=== PATIENT | male | born 1940 | race Caucasian/White ===

== ENCOUNTER 2017-10-21 08:38 | Outpatient (CLI) | payer MEDICARE, OTHER ==
[2017-10-21 09:48] LABS: HGB - HEMOGLOBIN 10.4 g/dL (14.0-18.0); MEAN CORPUSCULAR HEMOGLOBIN 29.5 pg (27.0-31.0); MEAN CORPUSCULAR HGB CONC 33.5 g/dL (32.0-36.0); MEAN CORPUSCULAR VOLUME 88.1 fL (80.0-94.0); MEAN PLATELET VOLUME 10.4 fL (7.4-11.4); RED BLOOD COUNT 3.53 10^6/uL (4.70-6.10); RED CELL DISTRIBUTION WIDTH 14.3 % (12.0-15.0); WHITE BLOOD COUNT 9.2 x10^3/uL (4.8-10.8)
[2017-10-21 09:57] LABS: CREATININE,URINE 75.3 mg/dL; PROTEIN/CREATININE RATIO,URINE 0.7 (<=0.2)
== END 2017-10-21 08:39 | disposition home or self-care (01) ==
LOC: RT 08:38
PROVIDERS: ATTEND Internal Medicine Cardiovascular Disease
DX: D70.9 Neutropenia, unspecified (principal); R80.9 Proteinuria, unspecified; I48.91 Unspecified atrial fibrillation
CPT/HCPCS: 36415; 82570; 84156; 93005

== ENCOUNTER 2017-11-19 08:02 | Outpatient (CLI) | payer MEDICARE, OTHER ==
[2017-11-19 10:08] LABS: CALCIUM 9.6 mg/dL (8.5-10.3); CREATININE 2.4 mg/dL (0.6-1.2); PHOSPHORUS 5.3 mg/dL (2.5-4.6)
[2017-11-19 10:26] LABS: FERRITIN 447.3 ng/mL (23.9-336.2)
[2017-11-19 11:11] LABS: FOLATE > 49.60 ng/mL (5.90 - >24.8)
--- NOTE | 2017-11-19 11:45 | Ultrasound Report ---
RENAL ULTRASOUND: 11/19/2017 CLINICAL INDICATION: Stage IV kidney disease. TECHNIQUE: Real-time scanning was performed with field service representative static images obtained. FINDINGS: The right kidney measures 11.1 x 5.7 x 5.0 cm. Multiple cysts are present, measuring up to 2 cm. No hydronephrosis or solid renal mass is identified. The left kidney measures 10.3 x 5.6 x 4.9 cm. Multiple cysts are present, measuring up to 1.6 cm. A small calcification is present in the lower pole. Prevoid, the urinary bladder measures 6.8 x 5.6 x 2.8 cm, yielding a prevoid volume of 56 mL. Bilateral ureteral jets are visualized. Postvoid residual is 8 mL. IMPRESSION: BILATERAL CYSTS AND A NONOBSTRUCTING LEFT RENAL CALCULUS. NO HYDRONEPHROSIS. AN 8 ML POSTVOID RESIDUAL. TD: 11/19/2017 11:44
== END 2017-11-19 08:03 | disposition home or self-care (01) ==
LOC: DI 08:02
PROVIDERS: ATTEND Internal Medicine Nephrology
DX: N18.4 Chronic kidney disease, stage 4 (severe) (principal); D50.0 Iron deficiency anemia secondary to blood loss (chronic); N05.9 Unspecified nephritic syndrome with unspecified morphologic changes; D64.9 Anemia, unspecified; E83.30 Disorder of phosphorus metabolism, unspecified; N25.81 Secondary hyperparathyroidism of renal origin; N20.0 Calculus of kidney; Q61.02 Congenital multiple renal cysts
CPT/HCPCS: 36415; 76770; 80048; 82607; 82728; 82746; 83540; 83970; 84100; 84466

== ENCOUNTER 2018-02-16 16:49 | Inpatient (IN) | payer MEDICARE, OTHER ==
--- NOTE | 2018-02-16 18:36 | XRAY Report ---
Procedure Date: 02/16/2018 Accession Number: [id number] / [id number] Procedure: XR - Chest 2 View X-Ray CPT Code: 87697 FULL RESULT: EXAM: CHEST RADIOGRAPHY EXAM DATE: 02/16/2018 06:08 PM. CLINICAL HISTORY: Chest pain. COMPARISON: None. TECHNIQUE: 2 views. FINDINGS: Lungs/Pleura: Mildly hyperexpanded. Diffuse prominence of lung markings. Small pleural effusions, left more than right, with underlying atelectasis versus infiltrate. No consolidation or pneumothorax. Mediastinum: Normal heart size. Mild diffuse vascular fullness. Other: Osteopenia. IMPRESSION: 1. Left basilar atelectasis versus infiltrate. 2. Findings of congestive failure with small effusions. RADIA
[2018-02-16 18:50] LABS: BASOPHILS # (AUTO) 0.1 10^3/uL (0.0-0.1); BASOPHILS % (AUTO) 0.8 %; EOSINOPHILS # (AUTO) 0.2 10^3/uL (0.0-0.7); EOSINOPHILS % (AUTO) 1.8 %; HGB - HEMOGLOBIN 9.8 g/dL (14.0-18.0); LYMPHOCYTES # (AUTO) 1.5 10^3/uL (1.5-3.5); LYMPHOCYTES % (AUTO) 16.7 %; MEAN CORPUSCULAR HEMOGLOBIN 29.4 pg (27.0-31.0); MEAN PLATELET VOLUME 10.8 fL (7.4-11.4); MONOCYTES # (AUTO) 0.7 10^3/uL (0.0-1.0); NEUTROPHILS # (AUTO) 6.4 10^3/uL (1.5-6.6); NEUTROPHILS % (AUTO) 72.7 %; PLT - PLATELET COUNT 187 10^3/uL (130-450); RED BLOOD COUNT 3.32 10^6/uL (4.70-6.10); RED CELL DISTRIBUTION WIDTH 14.1 % (12.0-15.0); WHITE BLOOD COUNT 8.8 x10^3/uL (4.8-10.8)
[2018-02-16 19:03] LABS: ALBUMIN 3.3 g/dL (3.2-5.5); ALBUMIN/GLOBULIN RATIO 0.9 (1.0-2.2); CALCIUM 8.5 mg/dL (8.5-10.3); CREATININE 2.3 mg/dL (0.6-1.2); TOTAL PROTEIN 6.9 g/dL (6.7-8.2)
--- NOTE | 2018-02-16 19:41 | ED Physician Documentation ---
PD HPI CHEST PAIN - Stated complaint Stated Complaint: SOA/CHEST TIGHTNESS - Chief complaint Chief Complaint: Cardiac - History obtained from History obtained from: Patient - History of Present Illness Timing - onset: How many days ago (3-4) Timing - duration: Days (3-4) Timing - details: Gradual onset, Still present (progressive) Quality: Pressure, Tightness Location: Substernal, Left chest Radiation: Neck Improved by: Rest Worsened by: Exertion (today with difficulty even walking across room at home.) , Position (more dyspnea with lying down.). No: Inspiration, Eating, Palpation Associated symptoms: Shortness of air, Feeling faint / dizzy, General Weakness. No: Palpitations, Cough Similar symptoms before: Has not had sx before (history of atrial fib in the past with ablation in [place] about a year ago, and was doing well. Sees Dr. Lane once moved here. Has not had prior CHF episodes.) Recently seen: Not recently seen Review of Systems Constitutional: denies: Fever, Chills Nose: denies: Rhinorrhea / runny nose, Congestion, Sinus pressure / pain Throat: denies: Sore throat Cardiac: reports: Chest pain / pressure, Pedal edema, Calf pain. denies: Palpitations Respiratory: reports: Dyspnea. denies: Cough, Wheezing GI: denies: Abdominal Pain, Nausea, Vomiting, Bloody / black stool Neurologic: reports: Generalized weakness. denies: Focal weakness, Numbness, Near syncope, Confused, Altered mental status, Headache Psychiatric: denies: Depressed, Anxiety, Insomnia Endocrine: reports: Easy bruising / bleeding. denies: Weight loss PD PAST MEDICAL HISTORY - Past Medical History Cardiovascular: Atrial fibrillation (with ablation about a year ago) Respiratory: Asthma Neuro: None Endocrine/Autoimmune: None - Present Medications Home Medications: Ambulatory Orders Medication Instructions Recorded Confirmed Apixaban [Eliquis] 5 mg 02/16/18 Calcitriol 0.25 02/16/18 Cyanocobalamin [Vitamin B-12] 1,000 mcg 02/16/18 Doxazosin [Cardura] 4 mg 02/16/18 Famotidine 40 mg 02/16/18 Folic Acid 1 mg 02/16/18 Insulin Aspart [NovoLOG] 02/16/18 Insulin Glargine [Lantus Solostar] 02/16/18 Lipase/Protease/Amylase [Creon Dr 1 tab 02/16/18 36,000 Units Capsule] Sodium Polystyrene Sulfonate 15 gm 02/16/18 [Kalexate] - Allergies Allergies/Adverse Reactions: Allergies Allergy/AdvReac Type Severity Reaction Status Date / Time No Known Drug Allergies Allergy Verified 02/16/18 17:07 - Living Situation Living Situation: reports: With family Living Arrangement: reports: At home - Social History Does the pt smoke?: No Does the pt drink ETOH?: No Does the pt have substance abuse?: No - Family History Family history: reports: Non contributory PD ED PE NORMAL - Vitals Vital signs reviewed: Yes - General General: Alert and oriented X 3, Well developed/nourished - HEENT HEENT: Pharynx benign - Neck Neck: Supple, no meningeal sign, No adenopathy, Other (JVD noted at 45 degrees. ) - Cardiac Cardiac: No murmur. No: RRR (irrregular but normal rate) - Respiratory Respiratory: No: Clear bilaterally (fine crackles lower 1/3. ) - Abdomen Abdomen: Soft, Non tender - Male Male : Deferred - Rectal Rectal: Deferred - Back Back: No CVA TTP, No spinal TTP - Derm Derm: Normal color, Warm and dry - Extremities Extremities: No calf tenderness / cord, Other (2+ edema in both legs up to knees. ) - Neuro Neuro: Alert and oriented X 3, No motor deficit, Normal speech Eye Opening: Spontaneous Motor: Obeys Commands Verbal: Oriented GCS Score: 15 Results - Vitals Vitals: Vital Signs - 24 hr 02/16/18 02/16/18 02/16/18 16:56 19:36 20:36 Temperature 36.5 C Heart Rate 82 65 74 Respiratory 18 19 20 Rate Blood Pressure 168/71 H 189/94 H 191/95 H O2 Saturation 97 99 97 02/16/18 02/16/18 02/16/18 20:46 21:07 21:22 Temperature Heart Rate 64 53 L 61 Respiratory 16 16 17 Rate Blood Pressure 169/98 H 183/78 H 186/93 H O2 Saturation 96 96 98 Oxygen O2 Source Room air - Labs Labs: Laboratory Tests 02/16/18 02/16/18 02/16/18 18:45 18:45 18:45 WBC 8.8 RBC 3.32 L Hgb 9.8 L Hct 30.6 L MCV 92.0 MCH 29.4 MCHC 32.0 RDW 14.1 Plt Count 187 MPV 10.8 Neut # (Auto) 6.4 Lymph # (Auto) 1.5 Bulloch # (Auto) 0.7 Eos # (Auto) 0.2 Baso # (Auto) 0.1 Absolute Nucleated RBC 0.00 Nucleated RBC % 0.0 Sodium 139 Potassium 3.1 L Chloride 99 L Carbon Dioxide 29 Anion Gap 11.0 BUN 40 H Creatinine 2.3 H Estimated GFR (MDRD) 28 L Glucose 122 H Calcium 8.5 Total Bilirubin 1.0 AST 22 ALT 18 Alkaline Phosphatase 87 Troponin I 0.05 B-Natriuretic Peptide Total Protein 6.9 Albumin 3.3 Globulin 3.6 Albumin/Globulin Ratio 0.9 L Lipase 23 02/16/18 18:45 WBC RBC Hgb Hct MCV MCH MCHC RDW Plt Count MPV Neut # (Auto) Lymph # (Auto) Bulloch # (Auto) Eos # (Auto) Baso # (Auto) Absolute Nucleated RBC Nucleated RBC % Sodium Potassium Chloride Carbon Dioxide Anion Gap BUN Creatinine Estimated GFR (MDRD) Glucose Calcium Total Bilirubin AST ALT Alkaline Phosphatase Troponin I B-Natriuretic Peptide 465 H Total Protein Albumin Globulin Albumin/Globulin Ratio Lipase - Rads (name of study) chest Radiology: Prelim report reviewed (c/w CHF), EMP read contemporaneously ( interstitial prominence c/w CHF. ) PD MEDICAL DECISION MAKING - ED course Complexity details: reviewed results, re-evaluated patient (he has considerable dyspnea just going to bathroom and back. Not hypoxic. I feel he will have some time for improving symptoms due to renal insufficiency and symptoms, that would not be able to be cleared in ER timeframe. Will discuss with Hospitalist. ), considered differential (Seems like CHF, may related to recurrent atrial fib ( though rate controlled currently but may be fast at times), high blood pressure with output failure, and renal insufficiency chronic. ), d/w patient - Sepsis Event Vital Signs: Vital Signs - 24 hr 02/16/18 02/16/18 02/16/18 16:56 19:36 20:36 Temperature 36.5 C Heart Rate 82 65 74 Respiratory 18 19 20 Rate Blood Pressure 168/71 H 189/94 H 191/95 H O2 Saturation 97 99 97 02/16/18 02/16/18 02/16/18 20:46 21:07 21:22 Temperature Heart Rate 64 53 L 61 Respiratory 16 16 17 Rate Blood Pressure 169/98 H 183/78 H 186/93 H O2 Saturation 96 96 98 Oxygen O2 Source Room air Departure - Departure Disposition: [address] [facility] DC/Xfer Clinical Impression: Congestive heart failure Qualifiers: Heart failure type: unspecified Heart failure chronicity: acute Qualified Code( s): I50.9 - Heart failure, unspecified Dyspnea Qualifiers: Dyspnea type: dyspnea on exertion Qualified Code(s): R06.09 - Other forms of dyspnea Condition: Stable Record reviewed to determine appropriate education?: Yes Discharge Date/Time: 02/16/18 21:55
[2018-02-16] MEDS ORDERED: METOPROLOL 5 MG/5 ML VIAL IVP STA (20:10)
[2018-02-16] MEDS ORDERED: FUROSEMIDE 40 MG/4 ML VIAL IVP STA (20:10)
[2018-02-16] MEDS ORDERED: NITROGLYCERIN SL 0.4 MG TABLET SL STA (20:12)
[2018-02-16] MEDS ORDERED: PROCHLORPERAZINE 10 MG/2 ML VIAL IVP PRN (21:25)
[2018-02-16] MEDS ORDERED: SODIUM CHLORIDE FLUSH 0.9% 10 ML SYRINGE IVP PRN (21:25)
[2018-02-16] MEDS ORDERED: TEMAZEPAM 15 MG CAPSULE PO PRN (21:25)
[2018-02-16] MEDS ORDERED: oxyCODONE 5 MG TABLET PO PRN (21:25)
[2018-02-16] MEDS ORDERED: NITROGLYCERIN SL 0.4 MG TABLET SL PRN (21:35)
--- NOTE | 2018-02-16 22:21 | HISTORY & PHYSICAL EXAMINATION ---
Chief Complaint - Chief Complaint Chief Complaint: Shortness of breath for 3 days History of Present Illness - Admitted From Admitted From:: Home - History Obtained From History obtained from: Patient, ED physician - History of Present Illness HPI Comment/Other: Mr. Wilfredo Begum is a very pleasant 77-year-old gentleman who has been having increasing shortness of breath with decreasing exercise tolerance over the last 3 days. He does have a remote history of atrial fibrillation and underwent ablation about a year to year and a half ago. When he shortness of breath continued to worsen he came to the emergency department where he was found to be in congestive heart failure with a BNP in the 600s and pulmonary edema.He will be admitted to medical surgical bed, placed on telemetry, gently diuresed, and given medications for his comorbidities. We will give him supplemental oxygen as needed, and obtain an echocardiogram in the morning. History - Past Medical History Cardiovascular: reports: Hypertension, Atrial fibrillation Respiratory: reports: None Neuro: reports: None Endocrine/Autoimmune: reports: Type 2 diabetes GI: reports: GERD, Pancreatitis : reports: Benign prostate hypertrophy, Frequency Musculoskeletal: reports: Chronic back pain Derm: reports: Psoriasis MRSA Hx?: No Other Past Medical History: Barretts disease - Past Surgical History General: reports: Cholecystectomy Ortho: reports: Spine surgery Cardiovascular: reports: Other (Ablation for atrial fibrillation 2) - Family & Social History Family History: Mother: (Mother of unknown causes, Father at age 86 with some sort of stomach issue), Father: , Sister: CAD, Cancer, Hyperlipidemia, Hypertension, [place] Family History Comment/Other: No known family history of COPD, CVA, or diabetes Living arrangement: At home Living Situation: Alone - Substance History Use: Uses substance without health or social issues: NONE Abuse: Recurrent use of substance despite neg consequences: NONE Dependence: Experiences withdrawal or developed tolerances: NONE (Patient quit drinking and smoking 5 years ago.) - POLST Patient has POLST: No POLST Status: Full Code Meds/Allgy - Home Medications Home Medications: Ambulatory Orders Medication Instructions Recorded Confirmed Apixaban [Eliquis] 5 mg 02/16/18 Calcitriol 0.25 02/16/18 Cyanocobalamin [Vitamin B-12] 1,000 mcg 02/16/18 Doxazosin [Cardura] 4 mg 02/16/18 Famotidine 40 mg 02/16/18 Folic Acid 1 mg 02/16/18 Insulin Aspart [NovoLOG] 02/16/18 Insulin Glargine [Lantus Solostar] 02/16/18 Lipase/Protease/Amylase [Creon Dr 1 tab 02/16/18 36,000 Units Capsule] Sodium Polystyrene Sulfonate 15 gm 02/16/18 [Kalexate] - Allergies Allergies/Adverse Reactions: Allergies Allergy/AdvReac Type Severity Reaction Status Date / Time No Known Drug Allergies Allergy Verified 02/16/18 17:07 Review of Systems - Constitutional Constitutional: reports: Fatigue, Weakness. denies: Fever, Chills, Night sweats - Eyes Eyes: denies: Pain, Irritation, Amaurosis, Blurred vision, Vision loss, Dipolpia - Ears, Nose & Throat Ears, Nose & Throat: denies: Ear pain, Hearing loss, Tinnitus, Vertigo, Nasal pain, Nasal discharge, Nosebleeds - Cardiovascular Cariovascular: reports: Irregular heart rate, Exertional dyspnea, Decr. exercise tolerance. denies: Palpitations, Chest pain, Edema, Syncope - Respiratory Respiratory: reports: Orthopnea, SOB at rest, SOB with exertion. denies: Cough , Sputum production, Wheezing, Snoring, Hemoptysis - Gastrointestinal Gastrointestinal: denies: Abdominal pain, Abdominal distention, Constipation, Diarrhea, Change in bowel habits, Rectal bleeding - Genitourinary Genitourinary: denies: Dysuria, Frequency, Urgency, Hematuria - Musculoskeletal Musculoskeletal: denies: Muscle pain, Back pain, Muscle aches, Stiffness - Integumentary Integumentary: denies: Rash, Pruritis, Lesions, Dryness - Neurological Neurological: denies: General weakness, Focal weakness, Headache, Dizziness - Psychiatric Psychiatric: denies: Depression, Anxiety, Suicidal - Endocrine Endocrine: denies: Polyuria, Polydypsia, Polyphagia - Hematologic/Lymphatic Hematologic/Lymphatic: denies: Anemia, Bruising, Petechiae, Lymphadenopathy - All Other Systems All Other Systems: reports: Reviewed and negative Exam - Vital Signs Reviewed Vital Signs: Yes Vital Signs: Vital Signs x48h Temp Pulse Pulse Resp BP BP Pulse Ox 02/16/18 22:02 36.5 C 62 18 172/72 H 97 02/16/18 21:32 56 L 21 184/84 H 96 02/16/18 21:22 61 17 186/93 H 98 06/20/18 21:07 53 L 16 183/78 H 96 02/16/18 20:46 64 16 169/98 H 96 02/16/18 20:36 74 20 191/95 H 97 02/16/18 19:36 65 19 189/94 H 99 02/16/18 16:56 36.5 C 82 18 168/71 H 97 - Physical Exam General Appearance: positive: No acute distress, Alert Eyes Bilateral: positive: Normal inspection, PERRL, EOMI, No lid inflammation, Conjunctivae nml, No scleral icterus ENT: positive: ENT inspection nml, Pharynx nml, No signs of dehydration Neck: positive: Nml inspection, Thyroid nml, No JVD, Trachea midline. negative : Thyromegaly Respiratory: positive: Chest non-tender, No respiratory distress, Breath sounds nml. negative: Wheezes, Rales, Rhonchi Cardiovascular: positive: No murmur, No gallop, Irregularly irregular Peripheral Pulses: positive: 1+ Abdomen: positive: Non-tender, No organomegaly, Nml bowel sounds, No distention. negative: Guarding, Rebound Back: positive: Nml inspection. negative: CVA tenderness (R), CVA tenderness (L ) Skin: positive: Color nml, No rash, Warm, Dry. negative: Cyanosis Extremities: positive: Non-tender, Full ROM, Nml appearance, No pedal edema Neurologic/Psychiatric: positive: Oriented x3, CN's nml (2-12), Motor nml, Sensation nml, Mood/affect nml Conclusion/Plan - Problem List (1) Congestive heart failure Conclusion/Plan: Newly diagnosed, BNP was 465 on admission. Patient's troponin was negative and his creatinine is elevated at 2.3. We will gently diurese him, give him a beta- celine, obtain an echocardiogram in the morning, and address any other comorbidities as they arise. Qualifiers: Heart failure type: unspecified Heart failure chronicity: acute Qualified Code(s): I50.9 - Heart failure, unspecified (2) History of atrial fibrillation Conclusion/Plan: Atrial fibrillation still seen on EKG, we will continue the patient on apixaban home dosing. (3) Macrocytic anemia Conclusion/Plan: We will continue the patient on vitamin B12 and folic acid supplements. Hemoglobin is 9.8. (4) Type 2 diabetes mellitus Conclusion/Plan: We will place the patient on a carb controlled diet and start him on sliding scale insulin coverage. (5) Benign prostatic hyperplasia Conclusion/Plan: We will continue the patient on doxazosin. (6) Gastroesophageal reflux disease Conclusion/Plan: We will continue the patient on famotidine. (7) Pancreatic insufficiency Conclusion/Plan: We will continue the patient on the replacement pancreatic enzymes. - Lab Results Lab results reviewed: Yes Fish Bones: 02/16/18 18:45 02/16/18 18:45 - Diagnostic Imaging Results Diagnostic Imaging Results: positive: Final report reviewed Diagnostic Imaging Results Comments: EXAM: CHEST RADIOGRAPHY EXAM DATE: 02/16/2018 06:08 PM. CLINICAL HISTORY: Chest pain. COMPARISON: None. TECHNIQUE: 2 views. FINDINGS: Lungs/Pleura: Mildly hyperexpanded. Diffuse prominence of lung markings. Small pleural effusions, left more than right, with underlying atelectasis versus infiltrate. No consolidation or pneumothorax. Mediastinum: Normal heart size. Mild diffuse vascular fullness. Other: Osteopenia. IMPRESSION: 1. Left basilar atelectasis versus infiltrate. 2. Findings of congestive failure with small effusions. - EKG Results EKG Interpreted Independently: Yes EKG Comparison: Old EKG unavailable EKG Findings: Atrial fibrillation, rate controlled. Core Measures - Anticipated LOS I expect patient to be DC'd or transferred within 96 hours.: Yes - DVT/VTE - Prophylaxis VTE/DVT Device ordered at admit?: Yes
[2018-02-16] MEDS: INSULIN GLARGINE 300 UNIT/3 ML PEN SUBQ SCH (22:47)
[2018-02-16] MEDS: METOPROLOL SUCCINATE 50 MG TABLET PO SCH (22:58)
[2018-02-17] MEDS: SODIUM CHLORIDE FLUSH 0.9% 10 ML SYRINGE IVP SCH ×3 (00:13→16:49)
[2018-02-17 05:41] LABS: HB2 TOTAL 9.3 g/dL; HEMOGLOBIN A1C 0.35 g/dL; HEMOGLOBIN A1C % 5.6 % (4.6-6.2)
[2018-02-17 06:54] LABS: CALCIUM 8.1 mg/dL (8.5-10.3); CREATININE 2.2 mg/dL (0.6-1.2)
[2018-02-17 06:58] LABS: HGB - HEMOGLOBIN 8.9 g/dL (14.0-18.0); MEAN CORPUSCULAR HEMOGLOBIN 29.9 pg (27.0-31.0); MEAN CORPUSCULAR VOLUME 90.7 fL (80.0-94.0); MEAN PLATELET VOLUME 11.2 fL (7.4-11.4); RED BLOOD COUNT 2.97 10^6/uL (4.70-6.10); RED CELL DISTRIBUTION WIDTH 13.7 % (12.0-15.0); WHITE BLOOD COUNT 6.4 x10^3/uL (4.8-10.8)
[2018-02-17] MEDS: INSULIN ASPART 300 UNIT/3 ML PEN SUBQ SCH ×4 (08:04→20:35)
[2018-02-17] MEDS: POTASSIUM CHLOR 10 MEQ/100 ML 10 MEQ/100 ML BAG IV SCH ×6 (08:50→14:12)
[2018-02-17] MEDS: POTASSIUM CHLORIDE 20 MEQ TABLET PO SCH ×2 (08:50→20:33)
[2018-02-17] MEDS: POLYETHYLENE GLYCOL 3350 17 GM PACKET PO SCH (08:50)
[2018-02-17] MEDS: FUROSEMIDE 40 MG/4 ML VIAL IVP SCH (08:50)
[2018-02-17] MEDS: METOPROLOL SUCCINATE 50 MG TABLET PO SCH (08:51)
[2018-02-17] MEDS: APIXABAN 2.5 MG TABLET PO SCH ×2 (11:58→20:33)
[2018-02-17] MEDS ORDERED: CYANOCOBALAMIN 1,000 MCG/ML VIAL IM SCH (12:00)
--- NOTE | 2018-02-17 19:03 | PROVIDER PROGRESS NOTE ---
Assessment/Plan - Problem List (1) Diastolic heart failure, NYHA class 2 Assessment/Plan: Newly diagnosed, BNP was 465 on admission. Patient's troponin was negative and his creatinine is elevated at 2.3. Echo shows grade 3 diastolic dysfunction with normal EF BNP stable Patient states he feels much better On RA Good urine output Improving Continue lasix and BB Heart failure type: unspecified Heart failure chronicity: acute Qualified Code(s): I50.9 - Heart failure, unspecified (2) History of atrial fibrillation Conclusion/Plan: Atrial fibrillation still seen on EKG, we will continue the patient on apixaban home dosing. Rate controlled on BB Stable (3) Macrocytic anemia Conclusion/Plan: We will continue the patient on vitamin B12 and folic acid supplements. Hemoglobin is Stable (4) Type 2 diabetes mellitus Conclusion/Plan: BG well controlled on DM diet and SS insulin Continue lantus 12 U daily (5) Benign prostatic hyperplasia Conclusion/Plan: We will continue the patient on doxazosin. Stable (6) Gastroesophageal reflux disease Conclusion/Plan: We will continue the patient on famotidine. Stable (7) Pancreatic insufficiency Conclusion/Plan: We will continue the patient on the replacement pancreatic enzymes. Patient to bring from home - Current Meds Current Meds: Current Medications Generic Name Dose Route Start Last Admin Trade Name Freq PRN Reason Stop Dose Admin Apixaban 2.5 mg 02/17/18 12:00 02/17/18 11:58 Eliquis PO 2.5 mg BID SHANIKA Administration Furosemide 40 mg 02/17/18 09:00 02/17/18 08:50 Lasix Inj 40 Mg Vial IVP 40 mg DAILY SHANIKA Administration Insulin Aspart 1 - 9 unit 02/17/18 08:00 02/17/18 16:50 Novolog SUBQ Not Given 0800,1200,1700,2100 SHANIKA Protocol Insulin Glargine 12 unit 02/16/18 21:00 02/16/18 22:47 Lantus Solostar SUBQ 12 unit QPM SHANIKA Administration Metoprolol Succinate 50 mg 02/16/18 23:00 02/17/18 08:51 Toprol Xl PO 50 mg DAILY SHANIKA Administration Polyethylene Glycol 17 gm 02/17/18 09:00 02/17/18 08:50 Miralax PO Not Given DAILY SHANIKA Potassium Chloride 20 meq 02/17/18 09:00 02/17/18 08:50 K-Dur PO 20 meq BID SHANIKA Administration Sodium Chloride 10 ml 02/17/18 01:00 02/17/18 16:49 Normal Saline Flush 0.9% IVP 10 ml 0100,0900,1700 SHANIKA Administration - Lab Result Lab results reviewed: Yes Fish Bone Diagrams: 02/18/18 04:50 02/18/18 04:50 - Additional Planning Condition/Complexity: Stable My Orders: My Active Orders 02/17/18 12:00 Apixaban [Eliquis] 2.5 mg PO BID Plan Discussed with:: Patient Time Spent: 31-60 minutes Subjective - Subjective Patient Reports: Feeling Better, Resting Comfortably, Shortness of Breath ( Improved), Other (LE swelling improved) Nursing Reports: No Complaints Objective Vital Signs: Vital Signs - 24 hr 02/16/18 02/16/18 02/16/18 21:32 21:50 22:02 Temperature 36.5 C Heart Rate 56 L 56 L Heart Rate [ 62 Brachial] Respiratory 21 18 18 Rate Blood Pressure 184/84 H 182/87 H Blood Pressure 172/72 H [Right Brachial artery] O2 Saturation 96 97 97 02/17/18 02/17/18 02/17/18 00:00 04:27 08:20 Temperature 36.2 C L 36.6 C 36.8 C Heart Rate Heart Rate [ 60 59 L 55 L Brachial] Respiratory 16 18 24 Rate Blood Pressure Blood Pressure 171/83 H 151/84 H 178/80 H [Right Brachial artery] O2 Saturation 96 95 94 02/17/18 02/17/18 12:24 15:26 Temperature 36.4 C L 36.9 C Heart Rate Heart Rate [ 56 L 62 Brachial] Respiratory 22 16 Rate Blood Pressure Blood Pressure 181/69 H 160/77 H [Right Brachial artery] O2 Saturation 94 96 Oxygen O2 Source Room air I&O (Last 24 Hrs): Intake and Output Totals x24h 02/15/18 02/16/18 02/17/18 23:59 23:59 23:59 Intake Total 400 2245.000 Output Total 1100 4950 Balance -700 -2705.000 General: Alert, Oriented x3, Cooperative, No acute distress HEENT: Atraumatic, PERRLA, EOMI, Mucous membr. moist/pink Neck: Supple, No JVD, No thyromegaly, +2 carotid pulse wo bruit Lymphatic: no adenopathy Neuro: Alert, Non Focal, CN 2-12 Grossly Intact, Oriented Times 3 Cardiovascular: Regular rate, Normal S1, Normal S2, No murmurs Respiratory: Chest non-tender, Rales (Bases) Abdomen: Normal bowel sounds, Soft, No tenderness, No hepatospenomegaly Extremities: No clubbing, No cyanosis, Normal pulses, Other (Bilateral lower Ext edema) Skin: No rashes - Results Results: Laboratory Results WBC 6.4 x10^3/uL (4.8-10.8) 02/17/18 04:25 RBC 2.97 10^6/uL (4.70-6.10) L 02/17/18 04:25 Hgb 8.9 g/dL (14.0-18.0) L 02/17/18 04:25 Hct 26.9 % (42.0-52.0) L 02/17/18 04:25 MCV 90.7 fL (80.0-94.0) 02/17/18 04:25 MCH 29.9 pg (27.0-31.0) 02/17/18 04:25 MCHC 33.0 g/dL (32.0-36.0) 02/17/18 04:25 RDW 13.7 % (12.0-15.0) 02/17/18 04:25 Plt Count 163 10^3/uL (130-450) 02/17/18 04:25 MPV 11.2 fL (7.4-11.4) 02/17/18 04:25 Neut # (Auto) 6.4 10^3/uL (1.5-6.6) 02/16/18 18:45 Lymph # (Auto) 1.5 10^3/uL (1.5-3.5) 02/16/18 18:45 Armstrong # (Auto) 0.7 10^3/uL (0.0-1.0) 02/16/18 18:45 Eos # (Auto) 0.2 10^3/uL (0.0-0.7) 02/16/18 18:45 Baso # (Auto) 0.1 10^3/uL (0.0-0.1) 02/16/18 18:45 Absolute Nucleated RBC 0.00 x10^3/uL 02/16/18 18:45 Nucleated RBC % 0.0 /100WBC 02/16/18 18:45 Sodium 139 mmol/L (135-145) 02/17/18 04:25 Potassium 2.6 mmol/L (3.5-5.0) L 02/17/18 04:25 Chloride 101 mmol/L (101-111) 02/17/18 04:25 Carbon Dioxide 30 mmol/L (21-32) 02/17/18 04:25 Anion Gap 8.0 (6-13) 02/17/18 04:25 BUN 39 mg/dL (6-20) H 02/17/18 04:25 Creatinine 2.2 mg/dL (0.6-1.2) H 02/17/18 04:25 Estimated GFR (MDRD) 29 (>89) L 02/17/18 04:25 Glucose 118 mg/dL (70-100) H 02/17/18 04:25 POC Whole Bld Glucose 109 mg/dL (70 - 100) H 02/17/18 16:45 Glycated Hemoglobin 5.6 % (4.6-6.2) 02/17/18 04:25 Estim Average Glucose 114 (70-100) H 02/17/18 04:25 Calcium 8.1 mg/dL (8.5-10.3) L 02/17/18 04:25 Total Bilirubin 1.0 mg/dL (0.2-1.0) 02/16/18 18:45 AST 22 IU/L (10-42) 02/16/18 18:45 ALT 18 IU/L (10-60) 02/16/18 18:45 Alkaline Phosphatase 87 IU/L (42-121) 02/16/18 18:45 Troponin I 0.05 ng/mL (<0.49) 02/16/18 18:45 B-Natriuretic Peptide 558 pg/mL (5-100) H 02/17/18 04:25 Total Protein 6.9 g/dL (6.7-8.2) 02/16/18 18:45 Albumin 3.3 g/dL (3.2-5.5) 02/16/18 18:45 Globulin 3.6 g/dL (2.1-4.2) 06/20/18 18:45 Albumin/Globulin Ratio 0.9 (1.0-2.2) L 02/16/18 18:45 Lipase 23 U/L (22-51) 02/16/18 18:45 ABX Reporting Has patient been on IV antibiotics over the past 48 hours?: No Current Medications - Current Medications Current Medications: Active Medications Generic Name Dose Route Start Last Admin Trade Name Freq PRN Reason Stop Dose Admin Apixaban 2.5 mg 02/17/18 12:00 02/17/18 20:33 Eliquis PO 2.5 mg BID [facility] Administration Calcitriol 0.5 mcg 02/18/18 09:00 Rocaltrol PO DAILY [facility] Calcium Citrate 250 mg 02/18/18 07:00 02/18/18 06:50 PO 250 mg DAILY SHANIKA Administration Doxazosin Mesylate 4 mg 02/17/18 21:00 02/17/18 20:33 Cardura PO 4 mg QPM SHANIKA Administration Famotidine 40 mg 02/18/18 09:00 Pepcid PO DAILY [facility] Folic Acid 1 mg 02/18/18 09:00 PO DAILY [facility] Furosemide 40 mg 02/17/18 09:00 02/17/18 08:50 Lasix Inj 40 Mg Vial IVP 40 mg DAILY [facility] Administration Insulin Aspart 1 - 9 unit 02/17/18 08:00 02/17/18 20:35 Novolog SUBQ 3 unit 0800,1200,1700,2100 [facility] Administration Protocol Insulin Glargine 12 unit 02/16/18 21:00 02/17/18 20:36 Lantus Solostar SUBQ 12 unit QPM SHANIKA Administration Metoprolol Succinate 50 mg 02/16/18 23:00 02/17/18 08:51 Toprol Xl PO 50 mg DAILY [facility] Administration Nitroglycerin 0.4 mg 02/16/18 21:35 Nitrostat SL Q5MIN PRN Chest Pain Non-Formulary Medication 1 cap 02/17/18 21:00 02/17/18 20:34 Lipase/Protease/Amylase [Tamara Walsh 36,000 Units Capsule] PO 1 cap BID [facility] Administration Oxycodone HCl 5 mg 02/16/18 21:25 Roxicodone PO Q4HR PRN Pain 5 to 7 Polyethylene Glycol 17 gm 02/17/18 09:00 02/17/18 08:50 Miralax PO Not Given DAILY SHANIKA Potassium Chloride 20 meq 02/17/18 09:00 02/17/18 20:33 K-Dur PO 20 meq BID SHANIKA Administration Prochlorperazine Edisylate 10 mg 02/16/18 21:25 Compazine Inj IVP Q6HR PRN Nausea / Vomiting Sodium Chloride 10 ml 02/16/18 21:25 Normal Saline Flush 0.9% IVP PRN PRN NEEDED PER PROVIDER ORDERS Sodium Chloride 10 ml 02/17/18 01:00 02/18/18 01:45 Normal Saline Flush 0.9% IVP 10 ml 0100,0900,1700 SHANIKA Administration Temazepam 15 mg 02/16/18 21:25 Restoril PO QPM PRN Insomnia Calcitriol 0.5 mcg PO DAILY 02/16/18 Cyanocobalamin [Vitamin B-12] 1,000 mcg IM .MONTHLY 02/16/18 Doxazosin [Cardura] 4 mg PO QPM 02/16/18 Famotidine 40 mg PO DAILY 02/16/18 Folic Acid 1 mg PO DAILY 02/16/18 Insulin Glargine [Lantus Solostar] 14 unit SUBQ QPM 02/16/18 Lipase/Protease/Amylase [Crekelli Dr 36,000 Units Capsule] 1 cap PO BIDAC 02/16/18 Apixaban [Eliquis] 2.5 mg PO BID 02/17/18 Cholecalciferol (Vitamin D3) [Vitamin D3] 1,000 unit PO DAILY 02/17/18 Insulin Aspart [NovoLOG] 5 - 9 unit SUBQ TIDWM 02/17/18 Simethicone [Gas Relief] 125 mg PO .AFTERMEALS PRN 02/17/18 amLODIPine [Norvasc] 5 mg PO DAILY 02/17/18
[2018-02-17] MEDS: DOXAZOSIN 4 MG TABLET PO SCH (20:33)
[2018-02-17] MEDS: PROTEASE PO SCH (20:34)
[2018-02-17] MEDS: AMYLASE PO SCH (20:34)
[2018-02-17] MEDS: LIPASE PO SCH (20:34)
[2018-02-17] MEDS: INSULIN GLARGINE 300 UNIT/3 ML PEN SUBQ SCH (20:36)
[2018-02-17] MEDS ORDERED: INSULIN GLARGINE 300 UNIT/3 ML PEN SUBQ SCH (21:00)
[2018-02-17] MEDS ORDERED: GABAPENTIN 300 MG CAPSULE PO SCH (21:00)
[2018-02-18] MEDS: SODIUM CHLORIDE FLUSH 0.9% 10 ML SYRINGE IVP SCH ×3 (01:45→19:58)
[2018-02-18 05:08] LABS: HGB - HEMOGLOBIN 9.1 g/dL (14.0-18.0); MEAN CORPUSCULAR HEMOGLOBIN 29.6 pg (27.0-31.0); MEAN CORPUSCULAR HGB CONC 32.4 g/dL (32.0-36.0); MEAN CORPUSCULAR VOLUME 91.3 fL (80.0-94.0); MEAN PLATELET VOLUME 10.6 fL (7.4-11.4); RED BLOOD COUNT 3.08 10^6/uL (4.70-6.10); RED CELL DISTRIBUTION WIDTH 13.6 % (12.0-15.0); WHITE BLOOD COUNT 6.6 x10^3/uL (4.8-10.8)
[2018-02-18 05:44] LABS: CREATININE 2.5 mg/dL (0.6-1.2); MAGNESIUM 1.9 mg/dL (1.7-2.8); PHOSPHORUS 3.2 mg/dL (2.5-4.6)
[2018-02-18] MEDS: CALCIUM CITRATE 250 MG TABLET PO SCH ×2 (06:50→11:10)
--- NOTE | 2018-02-18 08:13 | XRAY Report ---
Procedure Date: 02/18/2018 Accession Number: [id number] / [id number] Procedure: XR - Chest 1 View X-Ray CPT Code: 47772 FULL RESULT: EXAM: CHEST RADIOGRAPHY EXAM DATE: 02/18/2018 07:54 AM. CLINICAL HISTORY: Follow up CXR after furosemide. COMPARISON: 02/16/2018. TECHNIQUE: 1 view. FINDINGS: Lungs/Pleura: Bilateral central hazy and reticular opacities have increased compared to prior. No dense focal consolidation. No pneumothorax. Small pleural effusions are likely similar to prior. Mediastinum: The cardiac silhouette is normal in size. Aortic atherosclerosis. Other: None. IMPRESSION: Pulmonary edema, increased compared to prior. RADIA
[2018-02-18] MEDS: INSULIN ASPART 300 UNIT/3 ML PEN SUBQ SCH ×4 (08:42→20:00)
[2018-02-18] MEDS: METOPROLOL SUCCINATE 50 MG TABLET PO SCH (08:43)
[2018-02-18] MEDS: APIXABAN 2.5 MG TABLET PO SCH ×2 (08:43→20:01)
[2018-02-18] MEDS: CALCITRIOL 0.25 MCG CAPSULE PO SCH (08:43)
[2018-02-18] MEDS: FAMOTIDINE 20 MG TABLET PO SCH (08:43)
[2018-02-18] MEDS: POTASSIUM CHLORIDE 20 MEQ TABLET PO SCH ×2 (08:43→20:01)
[2018-02-18] MEDS: FOLIC ACID 1 MG TABLET PO SCH (08:43)
[2018-02-18] MEDS: AMYLASE PO SCH ×2 (08:44→20:01)
[2018-02-18] MEDS: FUROSEMIDE 40 MG/4 ML VIAL IVP SCH (08:44)
[2018-02-18] MEDS: LIPASE PO SCH ×2 (08:44→20:01)
[2018-02-18] MEDS: PROTEASE PO SCH ×2 (08:44→20:01)
[2018-02-18] MEDS: POLYETHYLENE GLYCOL 3350 17 GM PACKET PO SCH (08:45)
[2018-02-18] MEDS ORDERED: amLODIPine 5 MG TABLET PO SCH (09:00)
--- NOTE | 2018-02-18 18:28 | PROVIDER PROGRESS NOTE ---
Assessment/Plan - Problem List (1) Diastolic heart failure, NYHA class 2 Assessment/Plan: Newly diagnosed, BNP was 465 on admission. Patient's troponin was negative and his creatinine is elevated at 2.3. Echo shows grade 3 diastolic dysfunction with normal EF BNP increased to 597 this am Patient states he feels much better but CXR shows worsening pulmonary edema On RA Good urine output -5.4 L since admission Continue lasix and BB for one more day Clinically seems better Heart failure type: unspecified Heart failure chronicity: acute Qualified Code(s): I50.9 - Heart failure, unspecified (2) History of atrial fibrillation Conclusion/Plan: Atrial fibrillation still seen on EKG, we will continue the patient on apixaban home dosing. Rate controlled on BB Stable (3) Macrocytic anemia Conclusion/Plan: We will continue the patient on vitamin B12 and folic acid supplements. Hemoglobin is Stable (4) Type 2 diabetes mellitus Conclusion/Plan: BG well controlled on DM diet and SS insulin Continue lantus 12 U daily Stable (5) Benign prostatic hyperplasia Conclusion/Plan: We will continue the patient on doxazosin. Stable (6) Gastroesophageal reflux disease Conclusion/Plan: We will continue the patient on famotidine. Stable (7) Pancreatic insufficiency Conclusion/Plan: We will continue the patient on the replacement pancreatic enzymes. On Creon Stable - Current Meds Current Meds: Current Medications Generic Name Dose Route Start Last Admin Trade Name Freq PRN Reason Stop Dose Admin Apixaban 2.5 mg 02/17/18 12:00 02/18/18 08:43 Eliquis PO 2.5 mg BID SHANIKA Administration Calcitriol 0.5 mcg 02/18/18 09:00 02/18/18 08:43 Rocaltrol PO 0.5 mcg DAILY SHANIKA Administration Calcium Citrate 250 mg 02/18/18 07:00 02/18/18 11:10 PO Not Given DAILY SHANIKA Doxazosin Mesylate 4 mg 02/17/18 21:00 02/17/18 20:33 Cardura PO 4 mg QPM SHANIKA Administration Famotidine 40 mg 02/18/18 09:00 02/18/18 08:43 Pepcid PO 40 mg DAILY SHANIKA Administration Folic Acid 1 mg 02/18/18 09:00 02/18/18 08:43 PO 1 mg DAILY SHANIKA Administration Furosemide 40 mg 02/17/18 09:00 02/18/18 08:44 Lasix Inj 40 Mg Vial IVP 40 mg DAILY SHANIKA Administration Insulin Glargine 12 unit 02/16/18 21:00 02/17/18 20:36 Lantus Solostar SUBQ 12 unit QPM SHANIKA Administration Metoprolol Succinate 50 mg 02/16/18 23:00 02/18/18 08:43 Toprol Xl PO 50 mg DAILY SHANIKA Administration Non-Formulary Medication 1 cap 02/17/18 21:00 02/18/18 08:44 Lipase/Protease/Amylase [Tamara Walsh 36,000 Units Capsule] PO 1 cap BID SHANIKA Administration Polyethylene Glycol 17 gm 02/17/18 09:00 02/18/18 08:45 Miralax PO Not Given DAILY SHANIKA Potassium Chloride 20 meq 02/17/18 09:00 02/18/18 08:43 K-Dur PO 20 meq BID SHANIKA Administration Sodium Chloride 10 ml 02/16/18 21:25 02/18/18 08:45 Normal Saline Flush 0.9% IVP 10 ml PRN PRN Administration NEEDED PER PROVIDER ORDERS Sodium Chloride 10 ml 02/17/18 01:00 02/18/18 08:45 Normal Saline Flush 0.9% IVP 10 ml 0100,0900,1700 SHANIKA Administration - Lab Result Lab results reviewed: Yes Fish Bone Diagrams: 02/18/18 04:50 02/18/18 04:50 - Additional Planning Condition/Complexity: Guarded My Orders: My Active Orders 02/18/18 21:00 Insulin Aspart [NovoLOG] 2 - 10 unit SUBQ 0800,1200,1700,2100 Plan Discussed with:: Patient Time Spent: 31-60 minutes Subjective - Subjective Patient Reports: Feeling Better, Resting Comfortably, Other (Lower extremity swelling is improved, No chest pain, no cough.) Nursing Reports: No Complaints Objective Vital Signs: Vital Signs - 24 hr 02/17/18 02/17/18 02/18/18 20:12 23:45 04:21 Temperature 36.9 C 36.9 C 36.8 C Heart Rate [ 69 50 L 53 L Brachial] Respiratory 18 18 20 Rate Blood Pressure 171/73 H 156/69 H 169/74 H [Right Brachial artery] O2 Saturation 96 96 98 02/18/18 02/18/18 02/18/18 08:00 11:41 15:26 Temperature 36.6 C 36.7 C 36.7 C Heart Rate [ 57 L 51 L 56 L Brachial] Respiratory 20 20 18 Rate Blood Pressure 173/73 H 172/82 H 176/62 H [Right Brachial artery] O2 Saturation 96 97 95 Oxygen O2 Source Room air I&O (Last 24 Hrs): Intake and Output Totals x24h 02/16/18 02/17/18 02/18/18 23:59 23:59 23:59 Intake Total 400 2345.000 1540 Output Total 1100 5875 3910 Balance -700 -3530.000 -2370 General: Alert, Oriented x3, Cooperative, No acute distress HEENT: Atraumatic, PERRLA, EOMI, Mucous membr. moist/pink Neck: Supple, No JVD, No thyromegaly, +2 carotid pulse wo bruit, No LAD Lymphatic: no adenopathy Neuro: Alert, Non Focal, CN 2-12 Grossly Intact, Oriented Times 3 Cardiovascular: Regular rate, Normal S1, Normal S2, No murmurs Respiratory: Chest non-tender, No respiratory distress, Rales (bases) Abdomen: Normal bowel sounds, Soft, No tenderness, No hepatospenomegaly Extremities: No clubbing, No cyanosis, Normal pulses, Other (Bilateral ankle edema) Skin: No rashes, No breakdown - Results Results: Laboratory Results WBC 6.6 x10^3/uL (4.8-10.8) 02/18/18 04:50 RBC 3.08 10^6/uL (4.70-6.10) L 02/18/18 04:50 Hgb 9.1 g/dL (14.0-18.0) L 02/18/18 04:50 Hct 28.1 % (42.0-52.0) L 02/18/18 04:50 MCV 91.3 fL (80.0-94.0) 02/18/18 04:50 MCH 29.6 pg (27.0-31.0) 02/18/18 04:50 MCHC 32.4 g/dL (32.0-36.0) 02/18/18 04:50 RDW 13.6 % (12.0-15.0) 02/18/18 04:50 Plt Count 176 10^3/uL (130-450) 02/18/18 04:50 MPV 10.6 fL (7.4-11.4) 02/18/18 04:50 Neut # (Auto) 6.4 10^3/uL (1.5-6.6) 02/16/18 18:45 Lymph # (Auto) 1.5 10^3/uL (1.5-3.5) 02/16/18 18:45 Kerr # (Auto) 0.7 10^3/uL (0.0-1.0) 02/16/18 18:45 Eos # (Auto) 0.2 10^3/uL (0.0-0.7) 02/16/18 18:45 Baso # (Auto) 0.1 10^3/uL (0.0-0.1) 02/16/18 18:45 Absolute Nucleated RBC 0.00 x10^3/uL 02/16/18 18:45 Nucleated RBC % 0.0 /100WBC 02/16/18 18:45 Sodium 137 mmol/L (135-145) 02/18/18 04:50 Potassium 3.9 mmol/L (3.5-5.0) 02/18/18 04:50 Chloride 99 mmol/L (101-111) L 02/18/18 04:50 Carbon Dioxide 30 mmol/L (21-32) 02/18/18 04:50 Anion Gap 8.0 (6-13) 02/18/18 04:50 BUN 41 mg/dL (6-20) H 02/18/18 04:50 Creatinine 2.5 mg/dL (0.6-1.2) H 02/18/18 04:50 Estimated GFR (MDRD) 25 (>89) L 02/18/18 04:50 Glucose 128 mg/dL (70-100) H 02/18/18 04:50 POC Whole Bld Glucose 246 mg/dL (70 - 100) H 02/18/18 16:40 Glycated Hemoglobin 5.6 % (4.6-6.2) 02/17/18 04:25 Estim Average Glucose 114 (70-100) H 02/17/18 04:25 Calcium 8.0 mg/dL (8.5-10.3) L 02/18/18 04:50 Phosphorus 3.2 mg/dL (2.5-4.6) 02/18/18 04:50 Magnesium 1.9 mg/dL (1.7-2.8) 02/18/18 04:50 Total Bilirubin 1.0 mg/dL (0.2-1.0) 02/16/18 18:45 AST 22 IU/L (10-42) 02/16/18 18:45 ALT 18 IU/L (10-60) 02/16/18 18:45 Alkaline Phosphatase 87 IU/L (42-121) 02/16/18 18:45 Troponin I 0.05 ng/mL (<0.49) 02/16/18 18:45 B-Natriuretic Peptide 597 pg/mL (5-100) H 02/18/18 04:50 Total Protein 6.9 g/dL (6.7-8.2) 02/16/18 18:45 Albumin 3.3 g/dL (3.2-5.5) 02/16/18 18:45 Globulin 3.6 g/dL (2.1-4.2) 02/16/18 18:45 Albumin/Globulin Ratio 0.9 (1.0-2.2) L 02/16/18 18:45 Lipase 23 U/L (22-51) 02/16/18 18:45 ABX Reporting Has patient been on IV antibiotics over the past 48 hours?: No Current Medications - Current Medications Current Medications: Active Medications Generic Name Dose Route Start Last Admin Trade Name Freq PRN Reason Stop Dose Admin Apixaban 2.5 mg 02/17/18 12:00 02/18/18 08:43 Eliquis PO 2.5 mg BID SHANIKA Administration Calcitriol 0.5 mcg 02/18/18 09:00 02/18/18 08:43 Rocaltrol PO 0.5 mcg DAILY SHANIKA Administration Calcium Citrate 250 mg 02/18/18 07:00 02/18/18 11:10 PO Not Given DAILY SHANIKA Doxazosin Mesylate 4 mg 02/17/18 21:00 02/17/18 20:33 Cardura PO 4 mg QPM SHANIKA Administration Famotidine 40 mg 02/18/18 09:00 02/18/18 08:43 Pepcid PO 40 mg DAILY SHANIKA Administration Folic Acid 1 mg 02/18/18 09:00 02/18/18 08:43 PO 1 mg DAILY SHANIKA Administration Furosemide 40 mg 02/17/18 09:00 02/18/18 08:44 Lasix Inj 40 Mg Vial IVP 40 mg DAILY SHANIKA Administration Insulin Aspart 2 - 10 unit 02/18/18 21:00 Novolog SUBQ 0800,1200,1700,2100 [facility] Protocol Insulin Glargine 12 unit 02/16/18 21:00 02/17/18 20:36 Lantus Solostar SUBQ 12 unit QPM SHANIKA Administration Metoprolol Succinate 50 mg 02/16/18 23:00 02/18/18 08:43 Toprol Xl PO 50 mg DAILY [facility] Administration Nitroglycerin 0.4 mg 02/16/18 21:35 Nitrostat SL Q5MIN PRN Chest Pain Non-Formulary Medication 1 cap 02/17/18 21:00 02/18/18 08:44 Lipase/Protease/Amylase [Tamara Walsh 36,000 Units Capsule] PO 1 cap BID [facility] Administration Oxycodone HCl 5 mg 02/16/18 21:25 Roxicodone PO Q4HR PRN Pain 5 to 7 Polyethylene Glycol 17 gm 02/17/18 09:00 02/18/18 08:45 Miralax PO Not Given DAILY [facility] Potassium Chloride 20 meq 02/17/18 09:00 02/18/18 08:43 K-Dur PO 20 meq BID [facility] Administration Prochlorperazine Edisylate 10 mg 02/16/18 21:25 Compazine Inj IVP Q6HR PRN Nausea / Vomiting Sodium Chloride 10 ml 02/16/18 21:25 02/18/18 08:45 Normal Saline Flush 0.9% IVP 10 ml PRN PRN Administration NEEDED PER PROVIDER ORDERS Sodium Chloride 10 ml 02/17/18 01:00 02/18/18 08:45 Normal Saline Flush 0.9% IVP 10 ml 0100,0900,1700 [facility] Administration Temazepam 15 mg 02/16/18 21:25 Restoril PO QPM PRN Insomnia Calcitriol 0.5 mcg PO DAILY 02/16/18 Cyanocobalamin [Vitamin B-12] 1,000 mcg IM .MONTHLY 02/16/18 Doxazosin [Cardura] 4 mg PO QPM 02/16/18 Famotidine 40 mg PO DAILY 02/16/18 Folic Acid 1 mg PO DAILY 02/16/18 Insulin Glargine [Lantus Solostar] 14 unit SUBQ QPM 02/16/18 Lipase/Protease/Amylase [Tamara Walsh 36,000 Units Capsule] 1 cap PO BIDAC 02/16/18 Apixaban [Eliquis] 2.5 mg PO BID 02/17/18 Cholecalciferol (Vitamin D3) [Vitamin D3] 1,000 unit PO DAILY 02/17/18 Insulin Aspart [NovoLOG] 5 - 9 unit SUBQ TIDWM 02/17/18 Simethicone [Gas Relief] 125 mg PO .AFTERMEALS PRN 02/17/18 amLODIPine [Norvasc] 5 mg PO DAILY 02/17/18
[2018-02-18] MEDS: INSULIN GLARGINE 300 UNIT/3 ML PEN SUBQ SCH (19:59)
[2018-02-18] MEDS: DOXAZOSIN 4 MG TABLET PO SCH (20:01)
[2018-02-19] MEDS: SODIUM CHLORIDE FLUSH 0.9% 10 ML SYRINGE IVP SCH ×2 (00:58→08:14)
[2018-02-19 05:40] LABS: HGB - HEMOGLOBIN 9.5 g/dL (14.0-18.0); MEAN CORPUSCULAR HEMOGLOBIN 29.9 pg (27.0-31.0); MEAN CORPUSCULAR HGB CONC 32.8 g/dL (32.0-36.0); MEAN CORPUSCULAR VOLUME 91.1 fL (80.0-94.0); MEAN PLATELET VOLUME 10.8 fL (7.4-11.4); RED BLOOD COUNT 3.18 10^6/uL (4.70-6.10); RED CELL DISTRIBUTION WIDTH 14.1 % (12.0-15.0); WHITE BLOOD COUNT 6.6 x10^3/uL (4.8-10.8)
[2018-02-19 05:56] LABS: CALCIUM 8.4 mg/dL (8.5-10.3); CREATININE 2.5 mg/dL (0.6-1.2)
[2018-02-19 07:54] VITALS: BP 175/79
[2018-02-19] MEDS: FAMOTIDINE 20 MG TABLET PO SCH (08:12)
[2018-02-19] MEDS: METOPROLOL SUCCINATE 50 MG TABLET PO SCH (08:12)
[2018-02-19] MEDS: APIXABAN 2.5 MG TABLET PO SCH (08:12)
[2018-02-19] MEDS: FUROSEMIDE 40 MG/4 ML VIAL IVP SCH (08:13)
[2018-02-19] MEDS: POTASSIUM CHLORIDE 20 MEQ TABLET PO SCH (08:13)
[2018-02-19] MEDS: CALCITRIOL 0.25 MCG CAPSULE PO SCH (08:13)
[2018-02-19] MEDS: AMYLASE PO SCH (08:14)
[2018-02-19] MEDS: FOLIC ACID 1 MG TABLET PO SCH (08:14)
[2018-02-19] MEDS: PROTEASE PO SCH (08:14)
[2018-02-19] MEDS: INSULIN ASPART 300 UNIT/3 ML PEN SUBQ SCH (08:14)
[2018-02-19] MEDS: POLYETHYLENE GLYCOL 3350 17 GM PACKET PO SCH (08:14)
[2018-02-19] MEDS: LIPASE PO SCH (08:14)
[2018-02-19] MEDS: CALCIUM CITRATE 250 MG TABLET PO SCH (08:17)
--- NOTE | 2018-02-19 09:27 | Discharge Plan ---
Discharge Plan Disposition: Home, Self Care Condition: Stable Prescriptions: Furosemide [Lasix] 40 mg PO DAILY #30 tablet Potassium Chloride [K-Dur] 20 meq PO BID #30 tablet Diet: Low Sodium Activity Restrictions: Activity as Tolerated Shower Restrictions: No Driving Restrictions: No Assistance Devices: Cane Weight Bearing: Full Weight Additional Instructions or Follow Up instructions: You came to the emergency department with difficulty breathing and swelling in your legs. We found that you were in congestive heart failure. You likely went into congestive heart failure because of uncontrolled blood pressure and excessive salt intake. While you were hospitalized you were given a water pill through an IV which helped you lose over 20 pounds of fluid. You are now down to her dry weight which is 70.5 kg or 155 pounds. This should be her goal weight going forward. I would ask that you check your weight on a scale every day and if it goes up by 2 or 3 pounds that you increase your water pill which we are prescribing you called Lasix from 40 mg to 80 mg. You will be continued on your home medication amlodipine for your blood pressure you will need to monitor your blood pressure at home and follow-up with your primary care physician Dr. Del Rosario to have your blood pressure medication further adjusted as you should have a goal blood pressure of less than 130 systolic. I have also prescribed you some potassium supplement as while you are on the water pill you may start to lose potassium. I have also referred you for congestive heart failure classes. Follow-Up Care: [facility] - CHF Classes No Smoking: If you smoke, Please STOP! Call for help. Follow-up with: Renae Del Rosario MD [Primary Care Provider] -
[2018-02-19] MEDS ORDERED: amLODIPine 5 MG TABLET PO SCH (10:00)
--- NOTE | 2018-02-19 10:03 | DISCHARGE SUMMARY ---
Discharge Summary Admit Date: 02/16/18 Discharge Date: 02/19/18 Discharging Provider: Jay Jay Ayala MD Primary Care Provider: Renae Del Rosario MD Code Status: Attempt Resuscitation Condition at Discharge: Stable Discharge Disposition: 01 Home, Self Care - DIAGNOSES Admission Diagnoses: 1. Acute congestive heart failure, unspecified 2. History of atrial fibrillation 3. Macrocytic anemia 4. Type 2 diabetes mellitus 5. Benign prostatic hyperplasia 6. Gastroesophageal reflux disease 7. Pancreatic insufficiency Discharge Diagnoses with Status of Each Condition: 1. Diastolic heart failure, NYHA class II: Improved 2. Hypertension: Stable 3. History of atrial fibrillation: Stable 4. Microcytic anemia: Stable 5. Type 2 diabetes mellitus: Stable 6. Benign prostatic hyperplasia: Stable 7. Gastroesophageal reflux disease: Stable 8. Pancreatic insufficiency: Stable - HPI History of Present Illness: Mr. Wilfredo Begum is a very pleasant 77-year-old gentleman who has been having increasing shortness of breath with decreasing exercise tolerance over the last 3 days. He does have a remote history of atrial fibrillation and underwent ablation about a year to year and a half ago. When he shortness of breath continued to worsen he came to the emergency department where he was found to be in congestive heart failure with a BNP in the 600s and pulmonary edema.He will be admitted to medical surgical bed, placed on telemetry, gently diuresed, and given medications for his comorbidities. We will give him supplemental oxygen as needed, and obtain an echocardiogram in the morning. - HOSPITAL COURSE Hospital Course: During the hospitalization the patient was placed on 40 mg of IV Lasix twice daily and patient had excellent urine output. The patient was -8 L by the time of discharge and patient's weight decreased 8.5 kg. The patient had significant improvement in his breathing as well as his lower extremity swelling. The patient did undergo an echocardiogram which revealed moderate pulmonary hypertension and diastolic heart failure with a preserved ejection fraction. Patient was given education on congestive heart failure while he was hospitalized. Initially the patient had been placed on metoprolol as we were concerned for possible systolic heart failure but with metoprolol patient was becoming bradycardic and blood pressure was not well controlled. At discharge the patient was placed back on amlodipine which was his home blood pressure medication and given oral Lasix to take daily. Patient was also discharged with a prescription for potassium to take with his Lasix. The patient was instructed to weigh himself daily and to increase his dose of Lasix if his weight has increased by more than 2-3 pounds. The patient was also instructed to follow-up with his primary care physician and associate of science in nursing for further management of his hypertension and congestive heart failure. The patient was discharged home in stable condition and was significantly improved at the time of discharge. Patient was instructed to eat less salt. The patient was referred for CHF education. - ALLERGIES Allergies/Adverse Reactions: Allergies Allergy/AdvReac Type Severity Reaction Status Date / Time No Known Drug Allergies Allergy Verified 02/16/18 17:07 - MEDICATIONS Home Medications: Ambulatory Orders Medication Instructions Recorded Confirmed Calcitriol 0.5 mcg PO DAILY 02/16/18 02/17/18 Cyanocobalamin [Vitamin B-12] 1,000 mcg IM .MONTHLY 02/16/18 02/17/18 Doxazosin [Cardura] 4 mg PO QPM 02/16/18 02/17/18 Famotidine 40 mg PO DAILY 02/16/18 02/17/18 Folic Acid 1 mg PO DAILY 02/16/18 02/17/18 Insulin Glargine [Lantus Solostar] 14 unit SUBQ QPM 02/16/18 02/17/18 Lipase/Protease/Amylase [Creon Dr 1 cap PO BIDAC 02/16/18 02/17/18 36,000 Units Capsule] Apixaban [Eliquis] 2.5 mg PO BID 02/17/18 02/17/18 Cholecalciferol (Vitamin D3) 1,000 unit PO DAILY 02/17/18 02/17/18 [Vitamin D3] Insulin Aspart [NovoLOG] 5 - 9 unit SUBQ TIDWM 02/17/18 02/17/18 Simethicone [Gas Relief] 125 mg PO .AFTERMEALS PRN 02/17/18 02/17/18 amLODIPine [Norvasc] 5 mg PO DAILY 02/17/18 02/17/18 Furosemide [Lasix] 40 mg PO DAILY #30 tablet 02/19/18 Potassium Chloride [K-Dur] 20 meq PO BID #30 tablet 02/19/18 - PHYSICAL EXAM AT DISCHARGE General Appearance: positive: No acute distress, Alert Eyes Bilateral: positive: Normal inspection, PERRL, EOMI, No lid inflammation, Conjunctivae nml, No scleral icterus ENT: positive: ENT inspection nml, Pharynx nml, No signs of dehydration. negative: Purulent nasal drainage, Pharyngeal erythema, Oral lesions Neck: positive: Nml inspection, Thyroid nml, No JVD, Trachea midline. negative : Thyromegaly, Lymphadenopathy (R), Lymphadenopathy (L), Stiff neck, Carotid bruit, Tracheal deviation Respiratory: positive: Chest non-tender, No respiratory distress, Breath sounds nml. negative: Wheezes, Rales, Rhonchi Cardiovascular: positive: No murmur, No gallop, Irregularly irregular Peripheral Pulses: positive: 2+ Abdomen: positive: Non-tender, No organomegaly, Nml bowel sounds, No distention. negative: Guarding, Rebound, Hepatomegaly Back: positive: Nml inspection. negative: CVA tenderness (R), CVA tenderness (L ) Skin: positive: Color nml, No rash, Warm. negative: Cyanosis, Diaphoresis, Pallor Extremities: positive: Non-tender, Full ROM, Nml appearance, Pedal edema (Mild at his ankles) Neurologic/Psychiatric: positive: Oriented x3, CN's nml (2-12), Motor nml, Sensation nml, Mood/affect nml - LABS Result Diagrams: 02/19/18 04:56 02/19/18 04:56 Other Lab Results: Laboratory Results WBC 6.6 x10^3/uL (4.8-10.8) 02/19/18 04:56 RBC 3.18 10^6/uL (4.70-6.10) L 02/19/18 04:56 Hgb 9.5 g/dL (14.0-18.0) L 02/19/18 04:56 Hct 28.9 % (42.0-52.0) L 02/19/18 04:56 MCV 91.1 fL (80.0-94.0) 02/19/18 04:56 MCH 29.9 pg (27.0-31.0) 02/19/18 04:56 MCHC 32.8 g/dL (32.0-36.0) 02/19/18 04:56 RDW 14.1 % (12.0-15.0) 02/19/18 04:56 Plt Count 182 10^3/uL (130-450) 02/19/18 04:56 MPV 10.8 fL (7.4-11.4) 02/19/18 04:56 Neut # (Auto) 6.4 10^3/uL (1.5-6.6) 02/16/18 18:45 Lymph # (Auto) 1.5 10^3/uL (1.5-3.5) 02/16/18 18:45 Mclennan # (Auto) 0.7 10^3/uL (0.0-1.0) 02/16/18 18:45 Eos # (Auto) 0.2 10^3/uL (0.0-0.7) 02/16/18 18:45 Baso # (Auto) 0.1 10^3/uL (0.0-0.1) 02/16/18 18:45 Absolute Nucleated RBC 0.00 x10^3/uL 02/16/18 18:45 Nucleated RBC % 0.0 /100WBC 02/16/18 18:45 Sodium 139 mmol/L (135-145) 02/19/18 04:56 Potassium 4.2 mmol/L (3.5-5.0) 02/19/18 04:56 Chloride 101 mmol/L (101-111) 02/19/18 04:56 Carbon Dioxide 30 mmol/L (21-32) 02/19/18 04:56 Anion Gap 8.0 (6-13) 02/19/18 04:56 BUN 44 mg/dL (6-20) H 02/19/18 04:56 Creatinine 2.5 mg/dL (0.6-1.2) H 02/19/18 04:56 Estimated GFR (MDRD) 25 (>89) L 02/19/18 04:56 Glucose 67 mg/dL (70-100) L 02/19/18 04:56 POC Whole Bld Glucose 111 mg/dL (70 - 100) H 02/19/18 07:38 Glycated Hemoglobin 5.6 % (4.6-6.2) 02/17/18 04:25 Estim Average Glucose 114 (70-100) H 02/17/18 04:25 Calcium 8.4 mg/dL (8.5-10.3) L 02/19/18 04:56 Phosphorus 3.2 mg/dL (2.5-4.6) 02/18/18 04:50 Magnesium 1.9 mg/dL (1.7-2.8) 02/18/18 04:50 Total Bilirubin 1.0 mg/dL (0.2-1.0) 02/16/18 18:45 AST 22 IU/L (10-42) 02/16/18 18:45 ALT 18 IU/L (10-60) 02/16/18 18:45 Alkaline Phosphatase 87 IU/L (42-121) 02/16/18 18:45 Troponin I 0.05 ng/mL (<0.49) 02/16/18 18:45 B-Natriuretic Peptide 597 pg/mL (5-100) H 02/18/18 04:50 Total Protein 6.9 g/dL (6.7-8.2) 02/16/18 18:45 Albumin 3.3 g/dL (3.2-5.5) 02/16/18 18:45 Globulin 3.6 g/dL (2.1-4.2) 02/16/18 18:45 Albumin/Globulin Ratio 0.9 (1.0-2.2) L 02/16/18 18:45 Lipase 23 U/L (22-51) 02/16/18 18:45 - DIAGNOSTIC IMAGING Diagnostic Imaging Results: Final report reviewed Diagnostic Imaging Results Comments: Echocardiogram Interpretation summary: 1. Mild concentric left ventricular hypertrophy with normal systolic function, ejection fraction 55%. There is diastolic dysfunction with elevated pulmonary pressure. The left atrium is mildly dilated. 2. Mildly sclerotic aortic valve and mild mitral annular calcification. Mild mitral and tricuspid regurgitation are noted but otherwise valve function is normal. 3. Moderate pulmonary hypertension. Pulmonary artery systolic pressure 54 mmHg. Right ventricular size and function are normal. No shunting is seen. Chest x-ray 02/16/2018 Impression: 1. Left basilar atelectasis versus infiltrate. 2. Findings of congestive heart failure with small effusion Chest x-ray 02/18/2018 Impression: Pulmonary edema, increased compared to prior. - FOLLOW UP Follow Up: Patient will follow up with his primary care physician and associate of science in nursing. Patient was started on Lasix 40 mg daily along with potassium supplementation. He will be continued on his home dose of amlodipine. Patient will be checking his weights daily and will go for CHF education. The patient will also need to monitor his blood pressure and will likely need further titration of his antihypertensive medications. - TIME SPENT Time Spent in Discharge (Minutes): 40
== END 2018-02-19 10:08 | disposition home or self-care (01) | DRG 293 ==
LOC: ED 16:49 → MS2 21:25
PROVIDERS: ADMIT Hospitalist; ATTEND Internal Medicine
DX: I13.0 Hypertensive heart and chronic kidney disease with heart failure and stage 1 through stage 4 chronic kidney disease, or unspecified chronic kidney disease (principal); N18.9 Chronic kidney disease, unspecified; I50.9 Heart failure, unspecified; I11.0 Hypertensive heart disease with heart failure; I50.31 Acute diastolic (congestive) heart failure; I48.91 Unspecified atrial fibrillation; D53.9 Nutritional anemia, unspecified; E11.9 Type 2 diabetes mellitus without complications; N40.1 Benign prostatic hyperplasia with lower urinary tract symptoms; R35.0 Frequency of micturition; K21.9 Gastro-esophageal reflux disease without esophagitis; K86.89 Other specified diseases of pancreas; I27.20 Pulmonary hypertension, unspecified; R00.1 Bradycardia, unspecified; T44.7X5A Adverse effect of beta-adrenoreceptor antagonists, initial encounter; Y92.230 Patient room in hospital as the place of occurrence of the external cause; Z79.4 Long term (current) use of insulin; Z79.899 Other long term (current) drug therapy; Z79.01 Long term (current) use of anticoagulants; Z87.891 Personal history of nicotine dependence
CPT/HCPCS: 36415; 71045; 71046; 80048; 80053; 83036; 83690; 83735; 83880; 84100; 84484; 85025; 85027; 93005; 93306; 96374; 99284

== ENCOUNTER 2018-02-21 09:16 | Outpatient (CLI) | payer MEDICARE, OTHER ==
[2018-02-21 09:29] LABS: BASOPHILS # (AUTO) 0.1 10^3/uL (0.0-0.1); BASOPHILS % (AUTO) 0.6 %; EOSINOPHILS # (AUTO) 0.2 10^3/uL (0.0-0.7); HGB - HEMOGLOBIN 10.6 g/dL (14.0-18.0); LYMPHOCYTES # (AUTO) 1.2 10^3/uL (1.5-3.5); LYMPHOCYTES % (AUTO) 15.3 %; MEAN CORPUSCULAR HEMOGLOBIN 29.5 pg (27.0-31.0); MEAN CORPUSCULAR HGB CONC 32.1 g/dL (32.0-36.0); MEAN CORPUSCULAR VOLUME 91.8 fL (80.0-94.0); MEAN PLATELET VOLUME 10.1 fL (7.4-11.4); MONOCYTES # (AUTO) 0.7 10^3/uL (0.0-1.0); MONOCYTES % (AUTO) 8.3 %; NEUTROPHILS % (AUTO) 73.8 %; PLT - PLATELET COUNT 244 10^3/uL (130-450); RED CELL DISTRIBUTION WIDTH 14.5 % (12.0-15.0); WHITE BLOOD COUNT 8.2 x10^3/uL (4.8-10.8)
[2018-02-21 09:38] LABS: CREATININE 3.3 mg/dL (0.6-1.2)
[2018-02-21 15:59] LABS: PHOSPHORUS 4.3 mg/dL (2.5-4.6)
== END 2018-02-21 09:17 | disposition home or self-care (01) ==
LOC: LAB 09:16
PROVIDERS: ATTEND Internal Medicine Nephrology
DX: N05.9 Unspecified nephritic syndrome with unspecified morphologic changes (principal); D70.9 Neutropenia, unspecified; D63.1 Anemia in chronic kidney disease
CPT/HCPCS: 36415; 80048; 83970; 84100; 85025

== ENCOUNTER 2018-02-25 08:22 | Outpatient (CLI) | payer MEDICARE, OTHER ==
[2018-02-25 09:41] LABS: ALBUMIN 4.3 g/dL (3.2-5.5); CALCIUM 9.3 mg/dL (8.5-10.3); CREATININE 3.7 mg/dL (0.6-1.2); PHOSPHORUS 4.8 mg/dL (2.5-4.6)
== END 2018-02-25 08:23 | disposition home or self-care (01) ==
LOC: LAB 08:22
PROVIDERS: ATTEND Internal Medicine
DX: Z79.899 Other long term (current) drug therapy (principal); N18.9 Chronic kidney disease, unspecified
CPT/HCPCS: 36415; 80069

== ENCOUNTER 2018-02-28 08:51 | Outpatient (CLI) | payer MEDICARE, OTHER | END 2018-02-28 08:52 | disposition home or self-care (01) | LOC: LAB 08:51 | PROVIDERS: ATTEND Internal Medicine | DX: E87.5 Hyperkalemia (principal) | CPT/HCPCS: 36415; 84132 ==

== ENCOUNTER 2018-03-10 13:48 | Outpatient (CLI) | payer MEDICARE, OTHER ==
--- NOTE | 2018-03-10 18:48 | MRI Report ---
Procedure Date: 03/10/2018 Accession Number: [id number] / [id number] Procedure: MRI - Lumbar Spine W/O CPT Code: FULL RESULT: EXAM: MRI LUMBAR SPINE WITHOUT CONTRAST EXAM DATE: 03/10/2018 03:20 PM. CLINICAL HISTORY: Lumbar spine pain. Chronic low back pain. Right hip pain. Previous lumbar surgery 2003. COMPARISON: None. TECHNIQUE: Multiplanar, multisequence T1-weighted and fluid-sensitive sequences of the lumbar spine from T12 to S1 without contrast. Other: None. FINDINGS: Spinal Cord: The conus terminates at L1. The conus medullaris and cauda equina are unremarkable. Alignment: Retrolisthesis 7 mm L4 on L5. Bone Marrow: Five [id number] lumbar vertebral bodies are assumed. Mild chronic compression L2 vertebral body with 20% loss of vertebral body height and concave deformity of the anterior superior vertebral body endplate. Disk Levels/Facets: T12-L1: Unremarkable. L1-L2: Right posterolateral 2 mm disk protrusion. Negative for spinal canal stenosis or foraminal stenosis. L2-L3: Mild disk degeneration. L3-L4: Right laminectomy defect. Inferior 1 cm migration to the mid L4 vertebral body of a posterior right paracentral 4 mm in AP dimension and 1.1 cm in transverse dimension with right L4 lateral recess stenosis and impingement proximal right L4 nerve root (image 14 series 701). Central AP spinal canal diameter is 8 mm. The intervertebral foramina are negative for stenosis. Mild facet joint arthrosis. L4-L5: Posterior right paracentral 4 mm osteophytosis with moderate right lateral recess stenosis. Moderate facet joint arthrosis. Laminectomy defect. Negative for central spinal canal stenosis. Severe right foraminal stenosis from disk degeneration, endplate spurring and facet hypertrophy. There is moderate to severe left foraminal stenosis from disk degeneration and facet hypertrophy. Small 5 mm cyst left L5 lateral recess. Severe disk degeneration. Small fluid collection disk interspace. L5-S1: Severe disk degeneration. Mild facet joint arthrosis. Moderate to severe right and mild to moderate left foraminal stenosis from disk degeneration and endplate spurring. Severe disk degeneration. Mild right facet joint arthrosis. Musculature: Severe atrophy low lumbar and sacral posterior paraspinal muscles. Moderate left psoas muscle atrophy. Moderate atrophy of the left quadratus lumborum muscle. Other: The partially visualized retroperitoneum is unremarkable. Cyst 1.6 cm posterior inferior right kidney. Superior left kidney 9 mm cyst. IMPRESSION: 1. Moderate right L4 lateral recess stenosis and probable impingement proximal right L4 nerve root secondary to caudal 1 cm migration of a posterior right paracentral 4 mm in AP dimension and 1.1 cm in transverse dimension L3-L4 extruded disk fragment (image 14 series 701). 2. Moderate right lateral recess stenosis, severe right foraminal stenosis and moderate to severe left foraminal stenosis L4-L5. 3. Moderate to severe right and mild to moderate left L5-S1 foraminal stenosis. Comment: The following findings are so common in adults without low back pain that while we report their presence, they must be interpreted with caution and in the context of the clinical situation. (Reference Omkarvik et al, Spine 2001) Prevalence of findings in patients without low back pain: Disk degeneration (any evidence): 92% Disk desiccation/T2 signal loss: 83% Disk height loss: 56% Disk bulge: 64% Disk protrusion: 32% Annular tear/high intensity zone: 38% RADIA
== END 2018-03-10 13:49 | disposition home or self-care (01) ==
LOC: DI 13:48
PROVIDERS: ATTEND Orthopaedic Surgery
DX: M51.26 Other intervertebral disc displacement, lumbar region (principal); M51.36 Other intervertebral disc degeneration, lumbar region; M47.896 Other spondylosis, lumbar region; M51.37 Other intervertebral disc degeneration, lumbosacral region; M48.07 Spinal stenosis, lumbosacral region
CPT/HCPCS: 72148

== ENCOUNTER 2018-03-14 08:36 | Outpatient (CLI) | payer MEDICARE, OTHER | END 2018-03-14 08:37 | disposition home or self-care (01) | LOC: LAB 08:36 | PROVIDERS: ATTEND Internal Medicine | DX: E87.6 Hypokalemia (principal) | CPT/HCPCS: 36415; 84132 ==

== ENCOUNTER 2018-03-18 09:11 | Outpatient (CLI) | payer MEDICARE, OTHER ==
[2018-03-18 09:48] LABS: HGB - HEMOGLOBIN 10.5 g/dL (14.0-18.0); MEAN CORPUSCULAR HEMOGLOBIN 29.9 pg (27.0-31.0); MEAN CORPUSCULAR HGB CONC 32.8 g/dL (32.0-36.0); MEAN CORPUSCULAR VOLUME 91.4 fL (80.0-94.0); MEAN PLATELET VOLUME 10.7 fL (7.4-11.4); RED BLOOD COUNT 3.51 10^6/uL (4.70-6.10); RED CELL DISTRIBUTION WIDTH 14.6 % (12.0-15.0); WHITE BLOOD COUNT 6.7 x10^3/uL (4.8-10.8)
[2018-03-18 09:59] LABS: CREATININE 2.1 mg/dL (0.6-1.2)
== END 2018-03-18 09:12 | disposition home or self-care (01) ==
LOC: LAB 09:11
PROVIDERS: ATTEND Internal Medicine Nephrology
DX: I50.32 Chronic diastolic (congestive) heart failure (principal); N05.9 Unspecified nephritic syndrome with unspecified morphologic changes; D70.9 Neutropenia, unspecified; D63.1 Anemia in chronic kidney disease
CPT/HCPCS: 36415; 80048; 83880; 85027

== ENCOUNTER 2018-05-20 09:10 | Emergency (ER) | payer MEDICARE, OTHER ==
[2018-05-20] MEDS ORDERED: TETANUS/DIPHTHERIA/PERTUSSIS 0.5 ML SYRINGE IM ONE (09:45)
[2018-05-20] MEDS ORDERED: CIPROFLOXACIN 250 MG TABLET PO STA (12:51)
--- NOTE | 2018-05-20 12:54 | ED Physician Documentation ---
PD HPI SKIN - Stated complaint Stated Complaint: LEFT LOWER LEG PX - Chief complaint Chief Complaint: Wound - History obtained from History obtained from: Patient - History of Present Illness Timing - onset: Other (He scraped his left leg about 5 days ago. It became increasingly painful and red. He was seen in urgent care yesterday and prescribed dicloxacillin. He has had about 3 doses but the redness and pain have progressed. He does not have any rest pain, only when he walks. He denies fevers or chills. His blood sugars have been well controlled.) Review of Systems Constitutional: denies: Fever, Chills GI: denies: Abdominal Pain, Nausea, Vomiting : denies: Dysuria, Frequency PD PAST MEDICAL HISTORY - Past Medical History Past Medical History: Yes Cardiovascular: Atrial fibrillation Respiratory: Asthma Neuro: None Endocrine/Autoimmune: Type 1 diabetes GI: GERD, Pancreatitis : Benign prostate hypertrophy, Frequency Musculoskeletal: Chronic back pain Derm: Psoriasis - Past Surgical History Past Surgical History: Yes General: Cholecystectomy Ortho: Spine surgery Cardiovascular: Other Derm: Skin cancer surgery - Present Medications Home Medications: Ambulatory Orders Medication Instructions Recorded Confirmed Calcitriol 0.5 mcg PO DAILY 02/16/18 05/20/18 Cyanocobalamin [Vitamin B-12] 1,000 mcg IM .MONTHLY 02/16/18 05/20/18 Doxazosin [Cardura] 4 mg PO QPM 02/16/18 05/20/18 Famotidine 40 mg PO DAILY 02/16/18 05/20/18 Folic Acid 1 mg PO DAILY 02/16/18 05/20/18 Insulin Glargine [Lantus Solostar] 14 unit SUBQ QPM 02/16/18 05/20/18 Lipase/Protease/Amylase [Creon Dr 1 cap PO BIDAC 02/16/18 05/20/18 36,000 Units Capsule] Apixaban [Eliquis] 2.5 mg PO BID 02/17/18 05/20/18 Cholecalciferol (Vitamin D3) 1,000 unit PO DAILY 02/17/18 05/20/18 [Vitamin D3] Insulin Aspart [NovoLOG] 5 - 9 unit SUBQ TIDWM 02/17/18 05/20/18 Simethicone [Gas Relief] 125 mg PO .AFTERMEALS PRN 02/17/18 05/20/18 amLODIPine [Norvasc] 5 mg PO DAILY 02/17/18 05/20/18 Furosemide [Lasix] 40 mg PO DAILY #30 tablet 02/19/18 05/20/18 Ciprofloxacin HCl [Cipro] 500 mg PO BID #20 tablet 05/20/18 - Allergies Allergies/Adverse Reactions: Allergies Allergy/AdvReac Type Severity Reaction Status Date / Time No Known Drug Allergies Allergy Verified 02/16/18 17:07 - Social History Does the pt smoke?: No Smoking Status: Never smoker Does the pt drink ETOH?: No Does the pt have substance abuse?: No - Immunizations Immunizations are current?: Yes - POLST Patient has POLST: No POLST Status: Full Code PD ED PE NORMAL - Vitals Vital signs reviewed: Yes - General General: Alert and oriented X 3, No acute distress - Extremities Extremities: Other (There is an abrasion measuring about 3 cm around to the anterior left maldonado. It has some weeping drainage and mild surrounding cellulitis. He does not have pain out of proportion to examination or crepitance.) - Neuro Neuro: Alert and oriented X 3, Normal speech Results - Vitals Vitals: Vital Signs - 24 hr 05/20/18 09:30 Temperature 36.6 C Heart Rate 100 Respiratory 14 Rate Blood Pressure 172/87 H O2 Saturation 100 Oxygen O2 Source Room air - Labs Labs: Laboratory Tests 05/20/18 12:43 POC Whole Bld Glucose 277 H PD MEDICAL DECISION MAKING - Sepsis Event Vital Signs: Vital Signs - 24 hr 05/20/18 09:30 Temperature 36.6 C Heart Rate 100 Respiratory 14 Rate Blood Pressure 172/87 H O2 Saturation 100 Oxygen O2 Source Room air Departure - Departure Disposition: 01 Home, Self Care Clinical Impression: Left leg cellulitis Condition: Good Record reviewed to determine appropriate education?: Yes Instructions: Cellulitis Dc Prescriptions: Ciprofloxacin HCl [Cipro] 500 mg PO BID #20 tablet Comments: We are performing a wound culture, the results should be done in 48-72 hours. If antibiotic change is necessary we will call you. Return if worse in the meantime, especially if you develop increased pain, fevers, cannot keep down the medication. Otherwise follow-up with your physician in approximately 2-3 days. Your blood pressure was elevated today on check into the emergency department. This does not mean that you have hypertension, it is a common phenomenon to come to the emergency department and have elevated blood pressure. I recommend that you see your primary care physician within the week to have it rechecked when you are feeling better.
[2018-05-20 13:13] VITALS: BP 156/86
== END 2018-05-20 13:17 | disposition home or self-care (01) ==
LOC: ED 09:10
DX: L03.116 Cellulitis of left lower limb (principal); R03.0 Elevated blood-pressure reading, without diagnosis of hypertension; E10.9 Type 1 diabetes mellitus without complications; Z23 Encounter for immunization
CPT/HCPCS: 87070; 87077; 87181; 87205; 90471; 90715; 99283; A9270

== ENCOUNTER 2018-09-02 11:02 | Outpatient (CLI) | payer MEDICARE, OTHER ==
[2018-09-02 11:37] LABS: BASOPHILS % (AUTO) 0.6 %; EOSINOPHILS # (AUTO) 0.2 10^3/uL (0.0-0.7); EOSINOPHILS % (AUTO) 2.4 %; HGB - HEMOGLOBIN 10.4 g/dL (14.0-18.0); LYMPHOCYTES # (AUTO) 0.9 10^3/uL (1.5-3.5); LYMPHOCYTES % (AUTO) 13.7 %; MEAN CORPUSCULAR HEMOGLOBIN 29.4 pg (27.0-31.0); MEAN CORPUSCULAR HGB CONC 32.9 g/dL (32.0-36.0); MEAN CORPUSCULAR VOLUME 89.2 fL (80.0-94.0); MEAN PLATELET VOLUME 10.2 fL (7.4-11.4); MONOCYTES # (AUTO) 0.6 10^3/uL (0.0-1.0); MONOCYTES % (AUTO) 9.5 %; NEUTROPHILS # (AUTO) 4.7 10^3/uL (1.5-6.6); NEUTROPHILS % (AUTO) 73.8 %; PLT - PLATELET COUNT 192 10^3/uL (130-450); RED BLOOD COUNT 3.55 10^6/uL (4.70-6.10); RED CELL DISTRIBUTION WIDTH 14.2 % (12.0-15.0); WHITE BLOOD COUNT 6.4 x10^3/uL (4.8-10.8)
[2018-09-02 11:51] LABS: ALBUMIN 3.6 g/dL (3.2-5.5); ALBUMIN/GLOBULIN RATIO 0.9 (1.0-2.2); BILIRUBIN,TOTAL 0.8 mg/dL (0.2-1.0); CALCIUM 8.7 mg/dL (8.5-10.3); CREATININE 2.7 mg/dL (0.6-1.2); TOTAL PROTEIN 7.5 g/dL (6.7-8.2)
[2018-09-02 12:08] LABS: % IRON SATURATION 18 % (20-50); CHOLESTEROL 144 mg/dL; HDL CHOLESTEROL 48 mg/dL; IRON 42 ug/dL (45-182); LDL CHOLESTEROL,CALCULATED 84 mg/dL; LDL/HDL RATIO 1.8 (<3.6); TOTAL IRON BINDING CAPACITY 237 ug/dL (250-450); TRANSFERRIN 169 mg/dL (180-329); VLDL CHOLESTEROL 12 mg/dL
[2018-09-02 12:15] LABS: HB2 TOTAL 10.7 g/dL; HEMOGLOBIN A1C 0.48 g/dL; HEMOGLOBIN A1C % 6.3 % (4.6-6.2)
== END 2018-09-02 11:03 | disposition home or self-care (01) ==
LOC: LAB 11:02
PROVIDERS: ATTEND Internal Medicine
DX: N05.9 Unspecified nephritic syndrome with unspecified morphologic changes (principal); L03.90 Cellulitis, unspecified; B99.9 Unspecified infectious disease; D50.9 Iron deficiency anemia, unspecified; E11.40 Type 2 diabetes mellitus with diabetic neuropathy, unspecified
CPT/HCPCS: 36415; 80053; 80061; 82728; 83036; 83540; 83721; 84466; 85025

== ENCOUNTER 2018-09-09 09:44 | Outpatient (CLI) | payer MEDICARE, OTHER ==
--- NOTE | 2018-09-09 17:08 | CT Report ---
Reason: ROWE,HX,SDH Procedure Date: 09/09/2018 Accession Number: [id number] / [id number] Procedure: CT - Head W/O CPT Code: FULL RESULT: EXAM: CT HEAD EXAM DATE: 09/09/2018 09:43 AM. CLINICAL HISTORY: ROWE,HX,SDH. COMPARISON: None. TECHNIQUE: Multiaxial CT images were obtained from the foramen magnum to the vertex. Reformats: Sagittal and coronal. IV contrast: None. In accordance with CT protocol optimization, one or more of the following dose reduction techniques were utilized for this exam: automated exposure control, adjustment of mA and/or KV based on patient size, or use of iterative reconstructive technique. FINDINGS: Parenchyma: Asymmetric moderate right frontoparietal cortical atrophy. Less severe left cerebral convexity atrophy. Negative for mass-effect or midline shift. Encephalomalacia left frontal lobe. Extensive bilateral cerebral white matter patchy decreased density consistent with chronic small vessel ischemia. Moderate cerebellar volume loss. Probable ischemic gliosis maksim. Negative for discrete cerebellum lacunar infarct. Suprasellar cistern is clear. Extraaxial Spaces: Probable chronic left frontal dural thickening with calcification versus small frontal subdural hematoma corresponding to the large left frontoparietal craniotomy defect. Ventricles: Normal in size and position. Sinuses and Orbits: Imaged paranasal sinuses, orbits, and mastoids show no significant abnormality. Bones: Large left frontal craniotomy. Other: None. IMPRESSION: 1. Probable left frontal dural thickening with calcification status post large left frontoparietal craniotomy. Cannot exclude small left frontal 5 mm in thickness, 4.8 cm in height and 3.7 cm in AP dimension subdural hematoma. Correlate with prior CT head. 2. Medial left frontal focal encephalomalacia from stroke, trauma or surgery. Correlate with prior CT head. 3. Negative for ventriculomegaly or mass-effect. 4. Extensive patchy cerebral white matter decreased density consistent with chronic small vessel ischemia. RADIA
== END 2018-09-09 09:45 | disposition home or self-care (01) ==
LOC: DI 09:44
PROVIDERS: ATTEND Internal Medicine
DX: R51 Headache (principal); Z87.820 Personal history of traumatic brain injury; G93.89 Other specified disorders of brain; I67.82 Cerebral ischemia
CPT/HCPCS: 70450

== ENCOUNTER 2018-09-27 10:14 | Emergency (ER) | payer MEDICARE, OTHER ==
--- NOTE | 2018-09-27 11:30 | XRAY Report ---
Reason: pain Procedure Date: 09/27/2018 Accession Number: [id number] / [id number] Procedure: XR - Wrist 4 View RT CPT Code: FULL RESULT: EXAM: RIGHT WRIST RADIOGRAPHY EXAM DATE: 09/27/2018 11:17 AM. CLINICAL HISTORY: Pain. COMPARISON: None. TECHNIQUE: 3 views. FINDINGS: Bones: Bones are qualitatively osteopenic. No fractures or bone lesions. Joints: Normal. No subluxations. Soft Tissues: Extensive vascular calcifications are noted. IMPRESSION: No fracture or dislocation is identified. RADIA
[2018-09-27] MEDS ORDERED: MELOXICAM 7.5 MG TABLET PO STA (12:33)
[2018-09-27] MEDS ORDERED: predniSONE 20 MG TABLET PO STA (12:33)
--- NOTE | 2018-09-27 12:36 | ED Physician Documentation ---
History of Present Illness - Stated complaint Stated Complaint: RT HAND/WRIST PX - Chief complaint Chief Complaint: Trauma Ext - History obtained from History obtained from: Patient - History of Present Illness Timing: Today Pain level max: 10 Pain level now: 10 - Additonal information Additional information: 78-year-old male with right wrist pain upon awakening today. Does not recall any injury. Worse with movement and better with rest. Has not taken anything for this. He is on Eliquis. Patient is right-handed. Review of Systems Constitutional: denies: Fever GI: denies: Vomiting Skin: denies: Rash Musculoskeletal: denies: Neck pain, Back pain Neurologic: denies: Headache PD PAST MEDICAL HISTORY - Past Medical History Past Medical History: Yes Cardiovascular: Atrial fibrillation Respiratory: Asthma Neuro: None Endocrine/Autoimmune: Type 1 diabetes GI: GERD, Pancreatitis : Benign prostate hypertrophy, Frequency Musculoskeletal: Chronic back pain Derm: Psoriasis - Past Surgical History Past Surgical History: Yes General: Cholecystectomy Ortho: Spine surgery Cardiovascular: Other Derm: Skin cancer surgery - Present Medications Home Medications: Ambulatory Orders Medication Instructions Recorded Confirmed Calcitriol 0.5 mcg PO DAILY 02/16/18 09/27/18 Cyanocobalamin [Vitamin B-12] 1,000 mcg IM .MONTHLY 02/16/18 09/27/18 Doxazosin [Cardura] 4 mg PO QPM 02/16/18 09/27/18 Famotidine 40 mg PO DAILY 02/16/18 09/27/18 Folic Acid 1 mg PO DAILY 02/16/18 09/27/18 Insulin Glargine [Lantus Solostar] 14 unit SUBQ QPM 02/16/18 09/27/18 Lipase/Protease/Amylase [Creon Dr 1 cap PO BIDAC 02/16/18 09/27/18 36,000 Units Capsule] Apixaban [Eliquis] 2.5 mg PO BID 02/17/18 09/27/18 Cholecalciferol (Vitamin D3) 1,000 unit PO DAILY 02/17/18 09/27/18 [Vitamin D3] Insulin Aspart [NovoLOG] 5 - 9 unit SUBQ TIDWM 02/17/18 09/27/18 Simethicone [Gas Relief] 125 mg PO .AFTERMEALS PRN 02/17/18 09/27/18 amLODIPine [Norvasc] 5 mg PO DAILY 02/17/18 09/27/18 Furosemide [Lasix] 40 mg PO DAILY #30 tablet 02/19/18 09/27/18 Ciprofloxacin HCl [Cipro] 500 mg PO BID #20 tablet 05/20/18 09/27/18 Meloxicam [Mobic] 7.5 mg PO DAILY PRN #10 tablet 09/27/18 predniSONE [Prednisone] 20 mg PO DAILY #5 tablet 09/27/18 - Allergies Allergies/Adverse Reactions: Allergies Allergy/AdvReac Type Severity Reaction Status Date / Time No Known Drug Allergies Allergy Verified 09/27/18 10:43 - Social History Does the pt smoke?: No Smoking Status: Never smoker Does the pt drink ETOH?: No Does the pt have substance abuse?: No - Immunizations Immunizations are current?: Yes - POLST Patient has POLST: No POLST Status: Full Code PD ED PE NORMAL - Vitals Vital signs reviewed: Yes - General General: Alert and oriented X 3, No acute distress - HEENT HEENT: Moist mucous membranes - Derm Derm: Warm and dry - Extremities Extremities: Other (R wrist - mild redness and swelling to wrist. increase pain with ROM, has approx 80% of normal ROM still. No bony tenderness. o/w normal exam. NVI) - Neuro Neuro: Alert and oriented X 3 Results - Vitals Vitals: Vital Signs - 24 hr 09/27/18 10:39 Temperature 36.4 C L Heart Rate 95 Respiratory 16 Rate Blood Pressure 152/84 H O2 Saturation 100 Oxygen O2 Source Room air - Rads (name of study) R wrist xray Radiology: Prelim report reviewed, EMP read contemporaneously, See rad report (No acute abnormalities) PD MEDICAL DECISION MAKING - ED course Complexity details: reviewed results, considered differential, d/w patient ED course: 78-year-old male with a right wrist gouty arthritis versus osteoarthritis flare. Placed in a Velcro splint for comfort. Will place on steroids and anti- inflammatories for home. Neurovascularly intact. No evidence of septic joint. Patient counseled regarding signs and symptoms for which I believe and urgent re-evaluation would be necessary. Patient with good understanding of and agreement to plan and is comfortable going home at this time This document was made in part using voice recognition software. While efforts are made to proofread this document, sound alike and grammatical errors may occur. Departure - Departure Disposition: 01 Home, Self Care Clinical Impression: Gout Qualifiers: Gout site: wrist Gout etiology: unspecified cause Chronicity: acute Laterality: right Qualified Code(s): M10.9 - Gout, unspecified Osteoarthritis Qualifiers: Osteoarthritis location: wrist Osteoarthritis type: unspecified Laterality: right Qualified Code(s): M19.031 - Primary osteoarthritis, right wrist Condition: Good Instructions: ED Arthritis Gout, ED Degenerative Joint Disease Follow-Up: Renae Del Rosario MD [Primary Care Provider] - Within 1 week Prescriptions: Meloxicam [Mobic] 7.5 mg PO DAILY PRN #10 tablet PRN Reason: Pain predniSONE [Prednisone] 20 mg PO DAILY #5 tablet Comments: Wear the splint for the next 3 days to help with the pain. Return if you worsen. This should improve quickly. Follow-up with your doctor for further care.
[2018-09-27 13:12] VITALS: BP 145/81
== END 2018-09-27 12:48 | disposition home or self-care (01) ==
LOC: ED 10:14
DX: M10.9 Gout, unspecified (principal); M19.031 Primary osteoarthritis, right wrist; I48.91 Unspecified atrial fibrillation; Z79.01 Long term (current) use of anticoagulants; E10.9 Type 1 diabetes mellitus without complications; Z79.4 Long term (current) use of insulin
CPT/HCPCS: 73110; 99283; A9270; J7512

== ENCOUNTER 2018-11-06 11:54 | Emergency (ER) | payer MEDICARE, OTHER ==
[2018-11-06 12:28] LABS: BASOPHILS % (AUTO) 0.7 %; EOSINOPHILS # (AUTO) 0.1 10^3/uL (0.0-0.7); EOSINOPHILS % (AUTO) 1.1 %; HGB - HEMOGLOBIN 9.6 g/dL (14.0-18.0); LYMPHOCYTES # (AUTO) 0.9 10^3/uL (1.5-3.5); LYMPHOCYTES % (AUTO) 13.7 %; MEAN CORPUSCULAR HEMOGLOBIN 30.6 pg (27.0-31.0); MEAN CORPUSCULAR HGB CONC 33.1 g/dL (32.0-36.0); MEAN CORPUSCULAR VOLUME 92.3 fL (80.0-94.0); MEAN PLATELET VOLUME 10.2 fL (7.4-11.4); MONOCYTES # (AUTO) 0.5 10^3/uL (0.0-1.0); MONOCYTES % (AUTO) 8.1 %; NEUTROPHILS # (AUTO) 4.9 10^3/uL (1.5-6.6); NEUTROPHILS % (AUTO) 76.4 %; PLT - PLATELET COUNT 169 10^3/uL (130-450); RED BLOOD COUNT 3.13 10^6/uL (4.70-6.10); RED CELL DISTRIBUTION WIDTH 17.7 % (12.0-15.0); WHITE BLOOD COUNT 6.4 x10^3/uL (4.8-10.8)
--- NOTE | 2018-11-06 12:41 | ED Physician Documentation ---
PD HPI DYSPNEA - Stated complaint Stated Complaint: SOA,DIZZINESS FEELS FAINT - Chief complaint Chief Complaint: Cardiac - History obtained from History obtained from: Patient - History of Present Illness Timing - onset: How many weeks ago (1-2) Timing - onset during: Light activity, Exertion Timing - duration: Weeks (1-2) Timing - details: Gradual onset, Still present Inciting event(s): Other (has noted some abd fullness and mild only leg edema.). No: Out of meds, URI, Immobilization/travel Improved by: Rest, Sitting up Worsened by: Exertion, Laying flat. No: Coughing Associated symptoms: Wheezing, Bilateral edema (mild), Other (feels lightheaded with standing). No: Fever, Cough, Chest pain / discomfort, Palpitations, Diaphoresis Review of Systems Constitutional: denies: Fever, Chills, Myalgias Nose: denies: Rhinorrhea / runny nose, Congestion Throat: denies: Sore throat Cardiac: reports: Pedal edema. denies: Chest pain / pressure, Palpitations, Calf pain Respiratory: reports: Dyspnea, Wheezing. denies: Cough GI: denies: Abdominal Pain, Nausea, Vomiting, Diarrhea Musculoskeletal: denies: Neck pain, Back pain Neurologic: reports: Generalized weakness. denies: Focal weakness, Numbness, Near syncope (but feels lightheaded with initially standing up.) Endocrine: denies: Weight loss, Easy bruising / bleeding PD PAST MEDICAL HISTORY - Past Medical History Cardiovascular: Atrial fibrillation Respiratory: Asthma Neuro: None Endocrine/Autoimmune: Type 1 diabetes GI: GERD, Pancreatitis : Benign prostate hypertrophy, Frequency Musculoskeletal: Chronic back pain Derm: Psoriasis - Past Surgical History Past Surgical History: Yes General: Cholecystectomy Ortho: Spine surgery Cardiovascular: Other Derm: Skin cancer surgery - Present Medications Home Medications: Ambulatory Orders Medication Instructions Recorded Confirmed Calcitriol 0.5 mcg PO DAILY 02/16/18 09/27/18 Cyanocobalamin [Vitamin B-12] 1,000 mcg IM .MONTHLY 02/16/18 09/27/18 Doxazosin [Cardura] 4 mg PO QPM 02/16/18 09/27/18 Famotidine 40 mg PO DAILY 02/16/18 09/27/18 Folic Acid 1 mg PO DAILY 02/16/18 09/27/18 Insulin Glargine [Lantus Solostar] 14 unit SUBQ QPM 02/16/18 09/27/18 Lipase/Protease/Amylase [Creon Dr 1 cap PO BIDAC 02/16/18 09/27/18 36,000 Units Capsule] Apixaban [Eliquis] 2.5 mg PO BID 02/17/18 09/27/18 Cholecalciferol (Vitamin D3) 1,000 unit PO DAILY 02/17/18 09/27/18 [Vitamin D3] Insulin Aspart [NovoLOG] 5 - 9 unit SUBQ TIDWM 02/17/18 09/27/18 Simethicone [Gas Relief] 125 mg PO .AFTERMEALS PRN 02/17/18 09/27/18 amLODIPine [Norvasc] 5 mg PO DAILY 02/17/18 09/27/18 Furosemide [Lasix] 40 mg PO DAILY #30 tablet 02/19/18 09/27/18 Ciprofloxacin HCl [Cipro] 500 mg PO BID #20 tablet 05/20/18 09/27/18 Meloxicam [Mobic] 7.5 mg PO DAILY PRN #10 tablet 09/27/18 predniSONE [Prednisone] 20 mg PO DAILY #5 tablet 09/27/18 Albuterol Sulf [Ventolin Hfa 2 puffs INH Q4HR PRN #1 inhaler 11/06/18 Inhaler] - Allergies Allergies/Adverse Reactions: Allergies Allergy/AdvReac Type Severity Reaction Status Date / Time No Known Drug Allergies Allergy Verified 11/06/18 12:03 - Social History Does the pt smoke?: No Smoking Status: Never smoker Does the pt drink ETOH?: No Does the pt have substance abuse?: No - Immunizations Immunizations are current?: Yes - POLST Patient has POLST: No POLST Status: Full Code PD ED PE NORMAL - Vitals Vital signs reviewed: Yes - General General: Alert and oriented X 3, No acute distress, Well developed/nourished - HEENT HEENT: Moist mucous membranes, Pharynx benign - Neck Neck: Supple, no meningeal sign, No adenopathy - Cardiac Cardiac: RRR, Other (1/6 murmur left chest without radiation) - Respiratory Respiratory: No: Clear bilaterally (some exp wheezing, and also fine crackles in the bases, without coarse sounds. ) Results - Vitals Vitals: Vital Signs - 24 hr 11/06/18 11/06/18 11/06/18 11:59 13:39 14:59 Temperature 36.5 C Heart Rate 52 L 62 Heart Rate [ 65 Sitting] Heart Rate [ 74 Standing] Heart Rate [ 58 L Supine] Respiratory 16 16 Rate Blood Pressure 172/72 H Blood Pressure 155/71 H [Sitting] Blood Pressure 165/65 H [Standing] Blood Pressure 166/69 H [Supine] O2 Saturation 99 11/06/18 15:04 Temperature 36.5 C Heart Rate 61 Heart Rate [ Sitting] Heart Rate [ Standing] Heart Rate [ Supine] Respiratory 20 Rate Blood Pressure 175/66 H Blood Pressure [Sitting] Blood Pressure [Standing] Blood Pressure [Supine] O2 Saturation 100 Oxygen O2 Source Room air - Labs Labs: Laboratory Tests 11/06/18 11/06/18 11/06/18 12:20 12:20 12:20 WBC 6.4 RBC 3.13 L Hgb 9.6 L Hct 28.9 L MCV 92.3 MCH 30.6 MCHC 33.1 RDW 17.7 H Plt Count 169 MPV 10.2 Neut # (Auto) 4.9 Lymph # (Auto) 0.9 L [place] # (Auto) 0.5 Eos # (Auto) 0.1 Baso # (Auto) 0.0 Absolute Nucleated RBC 0.00 Nucleated RBC % 0.0 Sodium 137 Potassium 3.9 Chloride 110 Carbon Dioxide 14 L Anion Gap 13.0 BUN 53 H Creatinine 2.4 H Estimated GFR (MDRD) 26 L Glucose 124 H Calcium 8.3 L Total Bilirubin 0.5 AST 30 ALT 34 Alkaline Phosphatase 83 Troponin I < 0.04 B-Natriuretic Peptide Total Protein 6.5 L Albumin 3.1 L Globulin 3.4 Albumin/Globulin Ratio 0.9 L Lipase 23 11/06/18 12:20 WBC RBC Hgb Hct MCV MCH MCHC RDW Plt Count MPV Neut # (Auto) Lymph # (Auto) [place] # (Auto) Eos # (Auto) Baso # (Auto) Absolute Nucleated RBC Nucleated RBC % Sodium Potassium Chloride Carbon Dioxide Anion Gap BUN Creatinine Estimated GFR (MDRD) Glucose Calcium Total Bilirubin AST ALT Alkaline Phosphatase Troponin I B-Natriuretic Peptide 330 H Total Protein Albumin Globulin Albumin/Globulin Ratio Lipase PD MEDICAL DECISION MAKING - ED course Complexity details: considered differential (He has a rate control of atrial fib flutter with a history of atrial fibrillation. His BNP is not significantly elevated but he does have some fine crackles at the bases and has dyspnea on exertion and orthopnea and some mild pedal edema so seems like some congestive heart failure. He does have some wheezing component so this he may benefit from an inhaler to and did feel improved with a nebulizer here. She has he does not seem ill enough to need hospitalization at this point. He is comfortable and prefers heading home with increasing his Lasix dosing and adding inhaler.), d/w patient Departure - Departure Disposition: 01 Home, Self Care Clinical Impression: Congestive heart failure Qualifiers: Heart failure type: unspecified Heart failure chronicity: acute on chronic Qualified Code(s): I50.9 - Heart failure, unspecified Dyspnea Qualifiers: Dyspnea type: dyspnea on exertion Qualified Code(s): R06.09 - Other forms of dyspnea Condition: Stable Record reviewed to determine appropriate education?: Yes Follow-Up: Renae Del Rosario MD [Primary Care Provider] - Prescriptions: Albuterol Sulf [Ventolin Hfa Inhaler] 2 puffs INH Q4HR PRN #1 inhaler PRN Reason: Shortness Of Air/Wheezing Comments: I would have you take two doses of your Lasix daily for the next 3 or 4 days. Continue the morning dose as usual and add a second dose around lunchtime. Also use the albuterol inhaler 2 puffs 4 times a day for the next week. Follow-up with your primary care later this week and call tomorrow for an appointment. See how much improvement you have with these and if not improving then see what other treatments or testing is needed. I think there is some extra fluid buildup in your lungs causing some of your symptoms. However it may not be enough to account for all your symptoms so we will try the inhaler as well if there is a environmental or asthma type component. Discharge Date/Time: 11/06/18 15:30
[2018-11-06 13:03] LABS: ALBUMIN 3.1 g/dL (3.2-5.5); ALBUMIN/GLOBULIN RATIO 0.9 (1.0-2.2); BILIRUBIN,TOTAL 0.5 mg/dL (0.2-1.0); CALCIUM 8.3 mg/dL (8.5-10.3); CREATININE 2.4 mg/dL (0.6-1.2); TOTAL PROTEIN 6.5 g/dL (6.7-8.2)
--- NOTE | 2018-11-06 14:03 | XRAY Report ---
Reason: chest pain, soa, dizzy-CHF hx. Procedure Date: 11/06/2018 Accession Number: [id number] / [id number] Procedure: XR - Chest 2 View X-Ray CPT Code: 48750 FULL RESULT: EXAM: CHEST RADIOGRAPHY EXAM DATE: 11/06/2018 01:50 PM. CLINICAL HISTORY: Chest pain, soa, dizzy-CHF hx. COMPARISON: CHEST 1 VIEW 02/18/2018 7:43 AM. TECHNIQUE: 2 views. FINDINGS: Lungs/Pleura: No focal opacities evident. No pleural effusion. No pneumothorax. Normal volumes. Mediastinum: Heart and mediastinal contours are unremarkable. Other: None. IMPRESSION: Normal 2-view chest radiography. [facility]
[2018-11-06] MEDS ORDERED: ALBUTEROL NEB 2.5 MG/3 ML INH STA (14:27)
[2018-11-06] MEDS ORDERED: FUROSEMIDE 20 MG TABLET PO STA (14:46)
[2018-11-06 15:05] VITALS: BP 175/66
== END 2018-11-06 15:30 | disposition home or self-care (01) ==
LOC: ED 11:54
DX: I50.9 Heart failure, unspecified (principal); J45.909 Unspecified asthma, uncomplicated; I48.92 Unspecified atrial flutter; I48.91 Unspecified atrial fibrillation; Z79.01 Long term (current) use of anticoagulants; E10.9 Type 1 diabetes mellitus without complications; Z79.4 Long term (current) use of insulin
CPT/HCPCS: 36415; 71046; 80053; 83690; 83880; 84484; 85025; 93005; 94640; 94664; 99283; A9270; 85379

== ENCOUNTER 2018-11-22 09:07 | Outpatient (CLI) | payer MEDICARE, OTHER ==
[2018-11-22] MEDS ORDERED: ALBUTEROL NEB 2.5 MG/3 ML INH ONE (09:26)
== END 2018-11-22 09:08 | disposition home or self-care (01) ==
LOC: RT 09:07
PROVIDERS: ATTEND Internal Medicine
DX: R06.00 Dyspnea, unspecified (principal)
CPT/HCPCS: 94010

== ENCOUNTER 2018-12-03 10:13 | Emergency (ER) | payer MEDICARE, OTHER ==
[2018-12-03 10:56] LABS: BASOPHILS % (AUTO) 0.7 %; EOSINOPHILS % (AUTO) 0.6 %; LYMPHOCYTES # (AUTO) 0.6 10^3/uL (1.5-3.5); LYMPHOCYTES % (AUTO) 9.8 %; MEAN CORPUSCULAR HEMOGLOBIN 30.1 pg (27.0-31.0); MEAN CORPUSCULAR HGB CONC 32.2 g/dL (32.0-36.0); MEAN CORPUSCULAR VOLUME 93.4 fL (80.0-94.0); MEAN PLATELET VOLUME 10.4 fL (7.4-11.4); MONOCYTES # (AUTO) 0.6 10^3/uL (0.0-1.0); NEUTROPHILS % (AUTO) 78.9 %; PLT - PLATELET COUNT 202 10^3/uL (130-450); RED BLOOD COUNT 3.34 10^6/uL (4.70-6.10); RED CELL DISTRIBUTION WIDTH 15.3 % (12.0-15.0); WHITE BLOOD COUNT 6.4 x10^3/uL (4.8-10.8)
[2018-12-03 11:16] LABS: ALBUMIN 2.9 g/dL (3.2-5.5); ALBUMIN/GLOBULIN RATIO 0.8 (1.0-2.2); BILIRUBIN,TOTAL 0.6 mg/dL (0.2-1.0); CALCIUM 8.3 mg/dL (8.5-10.3); CREATININE 3.4 mg/dL (0.6-1.2); TOTAL PROTEIN 6.7 g/dL (6.7-8.2)
--- NOTE | 2018-12-03 11:31 | ED Physician Documentation ---
PD HPI ABD PAIN - Stated complaint Stated Complaint: SIDE PX - Chief complaint Chief Complaint: Abd Pain - History obtained from History obtained from: Patient - History of Present Illness Timing - onset: Last night Timing - duration: Days (1/2) Timing - details: Gradual onset, Still present, Waxing and waning Quality: Aching, Sharp, Pain Location: LLQ Radiation: No: Left flank Improved by: No: Eating Worsened by: Position (better on back; worse on left side), Palpation. No: Eating Associated symptoms: Constipation (He claims firm stool often with last bowel movement a couple of days ago and no noted blood.). No: Fever, Nausea, Diarrhea Similar symptoms before: Has not had sx before (He was feeling that he had some enlargement of the left abdomen. He states has been a long-term finding of fullness on the left side of the abdomen and had been previously evaluated for concern of hernia but was found to not have a hernia. He states this is the area that is feeling painful since last night. He denies any general abdominal pain.) Review of Systems Constitutional: denies: Fever, Chills, Myalgias Nose: denies: Rhinorrhea / runny nose, Congestion Throat: denies: Sore throat Cardiac: denies: Chest pain / pressure Respiratory: denies: Cough GI: reports: Abdominal Pain, Constipation (mild). denies: Nausea, Vomiting, Diarrhea : denies: Dysuria, Frequency Skin: denies: Rash, Lesions Neurologic: denies: Generalized weakness, Focal weakness, Near syncope PD PAST MEDICAL HISTORY - Past Medical History Cardiovascular: Atrial fibrillation Respiratory: Asthma Neuro: None Endocrine/Autoimmune: Type 1 diabetes GI: GERD, Pancreatitis : Benign prostate hypertrophy, Frequency Musculoskeletal: Chronic back pain Derm: Psoriasis - Past Surgical History Past Surgical History: Yes General: Cholecystectomy Ortho: Spine surgery Cardiovascular: Other Derm: Skin cancer surgery - Present Medications Home Medications: Ambulatory Orders Medication Instructions Recorded Confirmed Calcitriol 0.5 mcg PO DAILY 02/16/18 09/27/18 Cyanocobalamin [Vitamin B-12] 1,000 mcg IM .MONTHLY 02/16/18 09/27/18 Doxazosin [Cardura] 4 mg PO QPM 02/16/18 12/03/18 Famotidine 40 mg PO DAILY 02/16/18 12/03/18 Folic Acid 1 mg PO DAILY 02/16/18 09/27/18 Insulin Glargine [Lantus Solostar] 14 unit SUBQ QPM 02/16/18 12/03/18 Lipase/Protease/Amylase [[place] Dr 1 cap PO BIDAC 02/16/18 12/03/18 36,000 Units Capsule] Apixaban [Eliquis] 2.5 mg PO BID 02/17/18 09/27/18 Cholecalciferol (Vitamin D3) 1,000 unit PO DAILY 02/17/18 09/27/18 [Vitamin D3] Insulin Aspart [NovoLOG] 5 - 9 unit SUBQ TIDWM 02/17/18 12/03/18 Simethicone [Gas Relief] 125 mg PO .AFTERMEALS PRN 02/17/18 09/27/18 amLODIPine [Norvasc] 5 mg PO DAILY 02/17/18 12/03/18 Furosemide [Lasix] 40 mg PO DAILY #30 tablet 02/19/18 12/03/18 Ciprofloxacin HCl [Cipro] 500 mg PO BID #20 tablet 05/20/18 09/27/18 Meloxicam [Mobic] 7.5 mg PO DAILY PRN #10 tablet 09/27/18 predniSONE [Prednisone] 20 mg PO DAILY #5 tablet 09/27/18 Albuterol Sulf [Ventolin Hfa 2 puffs INH Q4HR PRN #1 inhaler 11/06/18 Inhaler] Amox/Clav 875/125 [Augmentin] 1 each PO Q12H #14 tablet 12/03/18 Ondansetron Odt [Zofran] 4 mg TL Q6H PRN #10 tablet 12/03/18 Tramadol HCl 50 mg PO Q6H PRN #15 tablet 12/03/18 - Allergies Allergies/Adverse Reactions: Allergies Allergy/AdvReac Type Severity Reaction Status Date / Time No Known Drug Allergies Allergy Verified 12/03/18 10:20 - Social History Does the pt smoke?: No Smoking Status: Never smoker Does the pt drink ETOH?: No Does the pt have substance abuse?: No - Immunizations Immunizations are current?: Yes - POLST Patient has POLST: No POLST Status: Full Code PD ED PE NORMAL - Vitals Vital signs reviewed: Yes - General General: Alert and oriented X 3, No acute distress, Well developed/nourished - HEENT HEENT: Pharynx benign - Neck Neck: Supple, no meningeal sign, No adenopathy - Cardiac Cardiac: RRR, No murmur - Respiratory Respiratory: No respiratory distress, Clear bilaterally - Abdomen Abdomen: Normal bowel sounds, Soft, Non distended, Other (There is a feeling of soft tissue fullness that is broad-based to the left side of the abdomen. And almost feels like a very broad hernia without any focal area. Consider also large lipoma or such. He does have tenderness in the area of that and also the left lower quadrant without any percussion or rebound tenderness. There is no CVA tenderness. The right side of the abdomen is nontender. There are no hernias felt in the inguinal area.) - Back Back: No CVA TTP - Derm Derm: Normal color, Warm and dry - Extremities Extremities: No deformity, Normal ROM s pain, No edema, No calf tenderness / cord - Neuro Neuro: Alert and oriented X 3, No motor deficit, Normal speech Results - Vitals Vitals: Vital Signs - 24 hr 12/03/18 12/03/18 12/03/18 10:18 12:03 14:45 Temperature 36.3 C L 36.1 C L Heart Rate 125 H 60 122 H Respiratory 20 20 20 Rate Blood Pressure 126/61 133/76 H 137/81 H O2 Saturation 100 99 100 Oxygen O2 Source Room air - Labs Labs: Laboratory Tests 12/03/18 12/03/18 12/03/18 10:36 10:36 11:00 WBC 6.4 RBC 3.34 L Hgb 10.0 L Hct 31.2 L MCV 93.4 MCH 30.1 MCHC 32.2 RDW 15.3 H Plt Count 202 MPV 10.4 Neut # (Auto) 5.0 Lymph # (Auto) 0.6 L [place] # (Auto) 0.6 Eos # (Auto) 0.0 Baso # (Auto) 0.0 Absolute Nucleated RBC 0.00 Nucleated RBC % 0.0 Sodium 137 Potassium 4.4 Chloride 106 Carbon Dioxide 16 L Anion Gap 15.0 H BUN 81 H* Creatinine 3.4 H Estimated GFR (MDRD) 18 L Glucose 245 H Calcium 8.3 L Total Bilirubin 0.6 AST 18 ALT 18 Alkaline Phosphatase 93 Total Protein 6.7 Albumin 2.9 L Globulin 3.8 Albumin/Globulin Ratio 0.8 L Lipase 20 L Urine Color YELLOW Urine Clarity CLEAR Urine pH 5.5 Ur Specific [place] 1.015 Urine Protein NEGATIVE Urine Glucose (UA) NEGATIVE Urine Ketones NEGATIVE Urine Occult Blood NEGATIVE Urine Nitrite NEGATIVE Urine Bilirubin NEGATIVE Urine Urobilinogen 0.2 (NORMAL) Ur Leukocyte Esterase NEGATIVE Ur Microscopic Review NOT INDICATED Urine Culture Comments NOT INDICATED - Rads (name of study) abd CT Radiology: Prelim report reviewed (There is some diverticulosis with a small area of uncomplicated sigmoid diverticulitis. No other acute abnormalities.), EMP read contemporaneously (His abdominal wall does appear to be with poor tone and does stretch off to the left lateral area much more so than the right. There is no obvious hernia nor soft tissue mass. The asymmetric exam seems to be just stretching of the abdominal wall to the left), See rad report Departure - Departure Disposition: 01 Home, Self Care Clinical Impression: Diverticulitis of gastrointestinal tract Abdominal pain Qualifiers: Abdominal location: left lower quadrant Qualified Code(s): R10.32 - Left lower quadrant pain Condition: Stable Record reviewed to determine appropriate education?: Yes Instructions: ED Diverticulitis Follow-Up: Renae Del Rosario MD [Primary Care Provider] - Prescriptions: Amox/Clav 875/125 [Augmentin] 1 each PO Q12H #14 tablet Ondansetron Odt [Zofran] 4 mg TL Q6H PRN #10 tablet PRN Reason: Nausea / Vomiting Tramadol HCl 50 mg PO Q6H PRN #15 tablet PRN Reason: Pain Comments: Continue usual medications. Stay well-hydrated. Add Augmentin antibiotic twice daily for a week for the diverticulitis. Tylenol if needed for pains. Add tramadol if needed for worse pain. Ondansetron for nausea. Use some probiotics twice daily over the next week as well to diminish the intestinal side effects of the antibiotic. Recheck if not improved in the next few days. Discharge Date/Time: 12/03/18 14:50
[2018-12-03 11:35] LABS: BILIRUBIN,URINE NEGATIVE (NEGATIVE); GLUCOSE, URINE (UA) NEGATIVE (NEGATIVE); KETONES,URINE (UA) NEGATIVE (NEGATIVE); LEUKOCYTE ESTERASE, URINE NEGATIVE (NEGATIVE); NITRITE,URINE NEGATIVE (NEGATIVE); OCCULT BLOOD,URINE NEGATIVE (NEGATIVE); PH,URINE 5.5 PH (5.0-7.5); PROTEIN,URINE NEGATIVE (NEGATIVE); UROBILINOGEN,URINE 0.2 (NORMAL) E.U./dL (NORMAL)
[2018-12-03 11:37] LABS: CLARITY,URINE CLEAR (CLEAR)
[2018-12-03] MEDS ORDERED: MORPHINE 10 MG/ML VIAL IVP STA (11:51)
[2018-12-03] MEDS ORDERED: SODIUM CHLORIDE 0.9% 1,000 ML IV ONE (11:51)
[2018-12-03] MEDS ORDERED: ONDANSETRON 4 MG/2 ML VIAL IVP STA (11:51)
--- NOTE | 2018-12-03 13:34 | CT Report ---
Reason: left abd pain for couple days Procedure Date: 12/03/2018 Accession Number: [id number] / [id number] Procedure: CT - Abdomen/Pelvis WO CPT Code: FULL RESULT: EXAM: CT ABDOMEN AND PELVIS (CT KUB) EXAM DATE: 12/03/2018 12:43 PM. CLINICAL HISTORY: Left abd pain for couple days. COMPARISONS: CHEST 2 VIEW 11/06/2018 1:35 PM ABDOMEN LIMITED 11/19/2017 8:34 AM. TECHNIQUE: Routine axial helical CT imaging was performed through the abdomen and pelvis without IV contrast. Reconstructions: Coronal and sagittal. In accordance with CT protocol optimization, one or more of the following dose reduction techniques were utilized for this exam: automated exposure control, adjustment of mA and/or KV based on patient size, or use of iterative reconstructive technique. FINDINGS: Limited evaluation of solid abdominal organs without intravenous contrast. Lung Bases: Unremarkable. Right Kidney/Ureter: Mild renal atrophy. Nonobstructing superior calyceal stone measures 11 x 8 mm. No obstructing stone, hydronephrosis, or hydroureter. No perinephric fat stranding. Probable cyst measures 2.2 cm. Left Kidney/Ureter: Mild renal atrophy. Exophytic hyperdense lesion superior pole left kidney measures 2.4 cm and appeared cystic on the previous ultrasound. No stone, hydronephrosis, or hydroureter. No perinephric fat stranding. Other Solid Organs: Pancreas is moderately atrophic with multiple parenchymal calcifications. There is a 1.5 cm cystic lesion in the distal body and an adjacent smaller cystic lesion. Small cystic Gallbladder/Bile Ducts: Cholecystectomy. Peritoneal Cavity: No free fluid, free air or robbin adenopathy. Extensive colonic diverticulosis. Prominent diverticulum with mild inflammatory changes along the distal descending and proximal sigmoid. No evidence of an abscess on limited noncontrast exam. Pelvic Organs: Water and prostate gland are unremarkable. Vasculature: Atherosclerosis. No aortic aneurysm. Other: None. IMPRESSION: 1. Extensive diverticulosis with probable mild diverticulitis of the distal descending colon. 2. Nonobstructing right renal stone. 3. Chronic pancreatitis. Small cystic lesions in the pancreatic body may be related to the chronic pancreatitis but are not well characterized. [facility]
[2018-12-03] MEDS ORDERED: AMOX/CLAV 875 MG/125 MG TABLET PO STA (14:36)
[2018-12-03 14:47] VITALS: BP 137/81
== END 2018-12-03 14:50 | disposition home or self-care (01) ==
LOC: ED 10:13
DX: K57.32 Diverticulitis of large intestine without perforation or abscess without bleeding (principal); E10.9 Type 1 diabetes mellitus without complications
CPT/HCPCS: 36415; 74176; 80053; 81003; 83690; 85025; 96361; 96374; 96375; 99284; A9270; 81001; 87086

== ENCOUNTER 2018-12-06 12:49 | Emergency (ER) | payer MEDICARE, OTHER ==
[2018-12-06] MEDS ORDERED: diltiaZEM INJ 5 MG/ML VIAL IVP STA (13:12)
--- NOTE | 2018-12-06 13:21 | ED Physician Documentation ---
History of Present Illness - Stated complaint Stated Complaint: RAPID HEART RATE - Chief complaint Chief Complaint: Cardiac - History obtained from History obtained from: Patient, Family - History of Present Illness Timing: Today (78-year-old gentleman with history of atrial fibrillation which is generally rate controlled without any AV lilia blocking agents. It sounds like he has a history of something along the lines of atrial flutter and had an ablation done in [place] about 5 years ago. The symptoms today are reminiscent from before he had the ablation done, he was sitting watching TV this morning and noticed a fast heart rate corroborated on his home monitor at 126 bpm. He feels a little dizzy with it but denies any chest pain.) - Additonal information Additional information: He was seen here a few days ago for diverticulitis, he feels better from that perspective Review of Systems Ten Systems: 10 systems reviewed and negative Constitutional: reports: Fatigue. denies: Fever, Chills Cardiac: denies: Chest pain / pressure PD PAST MEDICAL HISTORY - Past Medical History Cardiovascular: Atrial fibrillation Respiratory: Asthma Neuro: None Endocrine/Autoimmune: Type 1 diabetes GI: GERD, Pancreatitis : Benign prostate hypertrophy, Frequency Musculoskeletal: Chronic back pain Derm: Psoriasis - Past Surgical History Past Surgical History: Yes General: Cholecystectomy Ortho: Spine surgery Cardiovascular: Other Derm: Skin cancer surgery - Present Medications Home Medications: Ambulatory Orders Medication Instructions Recorded Confirmed Calcitriol 0.5 mcg PO DAILY 02/16/18 09/27/18 Doxazosin [Cardura] 4 mg PO QPM 02/16/18 12/03/18 Famotidine 40 mg PO DAILY 02/16/18 12/03/18 Insulin Glargine [Lantus Solostar] 14 unit SUBQ QPM 02/16/18 12/03/18 Insulin Aspart [NovoLOG] 5 - 9 unit SUBQ TIDWM 02/17/18 12/03/18 amLODIPine [Norvasc] 5 mg PO DAILY 02/17/18 12/03/18 Furosemide [Lasix] 40 mg PO DAILY #30 tablet 02/19/18 12/03/18 Ciprofloxacin HCl [Cipro] 500 mg PO BID #20 tablet 05/20/18 09/27/18 Ondansetron Odt [Zofran] 4 mg TL Q6H PRN #10 tablet 12/03/18 Apixaban [Eliquis] 2.5 mg PO BID #180 tablet 12/06/18 Diltiazem HCl [Diltiazem 24Hr ER] 120 mg PO DAILY #90 cap.sa.24h 12/06/18 - Allergies Allergies/Adverse Reactions: Allergies Allergy/AdvReac Type Severity Reaction Status Date / Time No Known Drug Allergies Allergy Verified 12/06/18 12:52 - Social History Does the pt smoke?: No Smoking Status: Never smoker Does the pt drink ETOH?: No Does the pt have substance abuse?: No - Immunizations Immunizations are current?: Yes - POLST Patient has POLST: No POLST Status: Full Code PD ED PE NORMAL - Vitals Vital signs reviewed: Yes - General General: Alert and oriented X 3, No acute distress - HEENT HEENT: Pharynx benign - Neck Neck: No JVD - Cardiac Cardiac: Other (Tachycardic and regular without murmur) - Respiratory Respiratory: No respiratory distress, Clear bilaterally - Abdomen Abdomen: Non tender - Extremities Extremities: No edema, No calf tenderness / cord - Neuro Neuro: Alert and oriented X 3, Normal speech Results - Vitals Vitals: Vital Signs - 24 hr 12/06/18 12/06/18 12:52 13:28 Temperature 36.8 C Heart Rate 128 H 93 Respiratory 16 14 Rate Blood Pressure 130/70 150/57 H O2 Saturation 100 100 Oxygen O2 Source Room air - EKG (time done) 1300 Rate: Rate (enter#) (126) Rhythm: Other (Exquisitely regular narrow complex rhythm, suspect atrial flutter especially given that his heart rate at home on his monitor was exactly the same.) Ischemia: No: ST elevation c/w ischemia Computer interpretation: Disagree with computer 1330 Rate: Rate (enter#) (104) Rhythm: Other (Rate was 104 with a variable block a-flutter.) Computer interpretation: Disagree with computer - Labs Labs: Laboratory Tests 12/06/18 12/06/18 13:19 13:19 WBC 8.1 RBC 3.37 L Hgb 10.0 L Hct 30.8 L MCV 91.4 MCH 29.6 MCHC 32.4 RDW 15.5 H Plt Count 229 MPV 9.6 Neut # (Auto) 6.6 Lymph # (Auto) 0.8 L Richardson # (Auto) 0.6 Eos # (Auto) 0.1 Baso # (Auto) 0.1 Absolute Nucleated RBC 0.00 Nucleated RBC % 0.0 Sodium 139 Potassium 4.3 Chloride 109 Carbon Dioxide 19 L Anion Gap 11.0 BUN 65 H Creatinine 2.7 H Estimated GFR (MDRD) 23 L Glucose 103 H Calcium 8.4 L PD MEDICAL DECISION MAKING - ED course ED course: 78-year-old gentleman with history of atrial fibrillation presents with rapid atrial flutter which Was easily rate controlled after the administration 10 mg of diltiazem IV. Of note he is not currently taking his anticoagulant because he threw it out because of easy bruising. I discussed with him and the family that bruising is better than a stroke. Departure - Departure Disposition: 01 Home, Self Care Clinical Impression: Atrial fibrillation Qualifiers: Atrial fibrillation type: chronic Qualified Code(s): I48.2 - Chronic atrial fibrillation Condition: Good Record reviewed to determine appropriate education?: Yes Instructions: Atrial Fibrillation Dc Prescriptions: Apixaban [Eliquis] 2.5 mg PO BID #180 tablet Diltiazem HCl [Diltiazem 24Hr ER] 120 mg PO DAILY #90 cap.sa.24h Comments: As discussed, it is important to take your medications, we are refilling the Eliquis that you previously threw out, at your request. Return for new or worsening symptoms. Follow-up with your wafer cutter in a couple of weeks as scheduled.
[2018-12-06 13:29] LABS: BASOPHILS # (AUTO) 0.1 10^3/uL (0.0-0.1); BASOPHILS % (AUTO) 0.9 %; EOSINOPHILS # (AUTO) 0.1 10^3/uL (0.0-0.7); LYMPHOCYTES # (AUTO) 0.8 10^3/uL (1.5-3.5); LYMPHOCYTES % (AUTO) 9.4 %; MEAN CORPUSCULAR HEMOGLOBIN 29.6 pg (27.0-31.0); MEAN CORPUSCULAR HGB CONC 32.4 g/dL (32.0-36.0); MEAN CORPUSCULAR VOLUME 91.4 fL (80.0-94.0); MEAN PLATELET VOLUME 9.6 fL (7.4-11.4); MONOCYTES # (AUTO) 0.6 10^3/uL (0.0-1.0); MONOCYTES % (AUTO) 7.6 %; NEUTROPHILS # (AUTO) 6.6 10^3/uL (1.5-6.6); NEUTROPHILS % (AUTO) 81.1 %; PLT - PLATELET COUNT 229 10^3/uL (130-450); RED BLOOD COUNT 3.37 10^6/uL (4.70-6.10); RED CELL DISTRIBUTION WIDTH 15.5 % (12.0-15.0); WHITE BLOOD COUNT 8.1 x10^3/uL (4.8-10.8)
[2018-12-06 13:35] LABS: CALCIUM 8.4 mg/dL (8.5-10.3); CREATININE 2.7 mg/dL (0.6-1.2)
[2018-12-06 13:54] VITALS: BP 150/99
== END 2018-12-06 13:50 | disposition home or self-care (01) ==
LOC: ED 12:49
DX: I48.2 Chronic atrial fibrillation (principal); I44.7 Left bundle-branch block, unspecified; R00.0 Tachycardia, unspecified; Z91.14 Patient's other noncompliance with medication regimen; E10.9 Type 1 diabetes mellitus without complications; Z79.01 Long term (current) use of anticoagulants
CPT/HCPCS: 36415; 80048; 85025; 93005; 96374; 99284

== ENCOUNTER 2018-12-12 10:02 | Emergency (ER) | payer MEDICARE, OTHER ==
[2018-12-12 11:14] LABS: INR 1.4 (0.8-1.2); PT - PROTHROMBIN TIME 15.6 secs (9.9-12.6)
--- NOTE | 2018-12-12 11:19 | ED Physician Documentation ---
PD HPI GI BLEED - Stated complaint Stated Complaint: BLOOD IN STOOL - Chief complaint Chief Complaint: Abd Pain - History obtained from History obtained from: Patient - History of Present Illness Timing - onset: Yesterday Timing - duration: Days (1) Timing - details: Abrupt onset, Still present Associated symptoms: BRBPR Contributing factors: Anticoagulated. No: Sick contact, Bad food Worsened by: Other (medication) Similar symptoms before: Diagnosis (hemorrhoid) Recently seen: Emergency Dept - Additional information Additional information: 78-year-old male on Eliquis for atrial fibrillation has been into the emergency department recently for A. fib with RVR and at that time he restarted his Eliquis. Yesterday morning with a bowel movement he had blood on the stool on the paper and in the bowl. This morning he had a recurrence of similar symptoms. He has had not had bleeding in between. He does have chronic anemia. Review of Systems Constitutional: denies: Fever, Chills Eyes: denies: Decreased vision Ears: denies: Ear pain Nose: denies: Congestion Throat: denies: Oral lesions / sores, Sore throat Cardiac: denies: Chest pain / pressure, Palpitations Respiratory: denies: Dyspnea, Cough GI: reports: Bloody / black stool. denies: Abdominal Pain, Nausea, Vomiting : denies: Dysuria, Frequency Skin: denies: Rash Musculoskeletal: denies: Neck pain, Back pain, Extremity pain Neurologic: denies: Generalized weakness, Focal weakness, Numbness PD PAST MEDICAL HISTORY - Past Medical History Past Medical History: Yes Cardiovascular: Atrial fibrillation Respiratory: Asthma Neuro: None Endocrine/Autoimmune: Type 1 diabetes GI: GERD, Pancreatitis : Benign prostate hypertrophy, Frequency Musculoskeletal: Chronic back pain Derm: Psoriasis - Past Surgical History Past Surgical History: Yes General: Cholecystectomy Ortho: Spine surgery Cardiovascular: Other Derm: Skin cancer surgery - Present Medications Home Medications: Ambulatory Orders Medication Instructions Recorded Confirmed Calcitriol 0.5 mcg PO DAILY 02/16/18 12/12/18 Doxazosin [Cardura] 4 mg PO QPM 02/16/18 12/12/18 Famotidine 40 mg PO DAILY 02/16/18 12/12/18 Insulin Glargine [Lantus Solostar] 9 unit SUBQ QPM 02/16/18 12/12/18 Insulin Aspart [NovoLOG] 1 - 14 unit SUBQ TIDWM 02/17/18 12/12/18 amLODIPine [Norvasc] 5 mg PO DAILY 02/17/18 12/12/18 Furosemide [Lasix] 40 mg PO DAILY #30 tablet 02/19/18 12/12/18 Apixaban [Eliquis] 2.5 mg PO BID #180 tablet 12/06/18 12/12/18 Diltiazem HCl [Diltiazem 24Hr ER] 120 mg PO DAILY #90 cap.sa.24h 12/06/18 12/12/18 Doxycycline Hyclate 20 mg ORAL DAILY 12/12/18 12/12/18 Lipase/Protease/Amylase [Creon Dr 36,000 units ORAL BID 12/12/18 12/12/18 36,000 Units Capsule] - Allergies Allergies/Adverse Reactions: Allergies Allergy/AdvReac Type Severity Reaction Status Date / Time No Known Drug Allergies Allergy Verified 12/12/18 10:22 - Social History Does the pt smoke?: No Smoking Status: Never smoker Does the pt drink ETOH?: No Does the pt have substance abuse?: No - Immunizations Immunizations are current?: Yes - POLST Patient has POLST: No POLST Status: Full Code PD ED PE NORMAL - Vitals Vital signs reviewed: Yes (tachy ) - General General: Alert and oriented X 3, No acute distress, Well developed/nourished - HEENT HEENT: Atraumatic, PERRL, EOMI - Neck Neck: Supple, no meningeal sign - Cardiac Cardiac: No murmur, Other (irregularly irregular ) - Respiratory Respiratory: No respiratory distress, Clear bilaterally - Abdomen Abdomen: Soft, Non tender - Rectal Rectal: Other (Normal tone red blood on glove minimal. 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, No motor deficit, No sensory deficit, Normal speech Eye Opening: Spontaneous Motor: Obeys Commands Verbal: Oriented GCS Score: 15 - Psych Psych: Normal mood, Normal affect Results - Vitals Vitals: Vital Signs - 24 hr 12/12/18 12/12/18 12/12/18 10:17 11:03 13:06 Temperature 36.5 C Heart Rate 126 H 99 77 Respiratory 16 20 13 Rate Blood Pressure 126/60 126/60 137/55 H O2 Saturation 100 100 100 Oxygen O2 Source Room air - Labs Labs: Laboratory Tests 12/12/18 12/12/18 12/12/18 10:55 10:55 11:25 WBC 8.1 RBC 3.17 L Hgb 9.4 L Hct 29.2 L MCV 92.3 MCH 29.7 MCHC 32.1 RDW 15.1 H Plt Count 230 MPV 10.4 Neut # (Auto) 6.7 H Lymph # (Auto) 0.7 L [place] # (Auto) 0.5 Eos # (Auto) 0.1 Baso # (Auto) 0.1 Absolute Nucleated RBC 0.00 Nucleated RBC % 0.0 PT 15.6 H INR 1.4 H Sodium 136 Potassium 4.2 Chloride 107 Carbon Dioxide 18 L Anion Gap 11.0 BUN 59 H Creatinine 2.3 H Estimated GFR (MDRD) 27 L Glucose 244 H Calcium 8.5 Total Bilirubin 0.6 AST 29 ALT 26 Alkaline Phosphatase 78 Total Protein 7.1 Albumin 3.2 Globulin 3.9 Albumin/Globulin Ratio 0.8 L Lipase 22 Urine Color Urine Clarity Urine pH Ur Specific [place] Urine Protein Urine Glucose (UA) Urine Ketones Urine Occult Blood Urine Nitrite Urine Bilirubin Urine Urobilinogen Ur Leukocyte Esterase Urine RBC Urine WBC Ur Squamous Epith Cells Urine Bacteria Ur Microscopic Review Urine Culture Comments 12/12/18 12:36 WBC RBC Hgb Hct MCV MCH MCHC RDW Plt Count MPV Neut # (Auto) Lymph # (Auto) [place] # (Auto) Eos # (Auto) Baso # (Auto) Absolute Nucleated RBC Nucleated RBC % PT INR Sodium Potassium Chloride Carbon Dioxide Anion Gap BUN Creatinine Estimated GFR (MDRD) Glucose Calcium Total Bilirubin AST ALT Alkaline Phosphatase Total Protein Albumin Globulin Albumin/Globulin Ratio Lipase Urine Color YELLOW Urine Clarity CLEAR Urine pH 5.0 Ur Specific [place] <=1.005 Urine Protein NEGATIVE Urine Glucose (UA) NEGATIVE Urine Ketones NEGATIVE Urine Occult Blood NEGATIVE Urine Nitrite NEGATIVE Urine Bilirubin NEGATIVE Urine Urobilinogen 0.2 (NORMAL) Ur Leukocyte Esterase TRACE H Urine RBC None Seen Urine WBC 4-5 Ur Squamous Epith Cells RARE Squamous Urine Bacteria None Seen Ur Microscopic Review INDICATED Urine Culture Comments INDICATED Procedures - IVC sono (time) 1115 Bedside IVC sono: IVC measures (cm) (1.58), IVC collapsed c insp (cm) (1.0), Euvolemia PD MEDICAL DECISION MAKING - ED course Complexity details: reviewed results, re-evaluated patient, considered differential, d/w patient, d/w eco industrial development consultant ([place]: recommends discontinuation of eliquis and follow up for alternatives. ) ED course: 78-year-old male with acute GI bleeding after restarting Eliquis has had episodic bleeding with one episode today one episode yesterday he does have internal hemorrhoids I suspect this is the source of his bleeding and I suspect the Eliquis is the culprit. Departure - Departure Disposition: 01 Home, Self Care Clinical Impression: Hemorrhoids, internal, with bleeding Condition: Stable Instructions: ED Hematochezia Stable, ED Hemorrhoids Follow-Up: Renae Del Rosario MD [Primary Care Provider] - Salvador Lane MD [Provider Admit Priv/Credential] - Comments: Today it looks like the culprit for bleeding is internal hemorrhoids and the recommendation is that you stop your Eliquis. Dr. Lane's office will call you about a follow-up appointment for alternatives to anticoagulation. In the meantime treat the hemorrhoids with 1% hydrocortisone available [id number] and use this twice per day.
[2018-12-12 11:20] LABS: ALBUMIN 3.2 g/dL (3.2-5.5); ALBUMIN/GLOBULIN RATIO 0.8 (1.0-2.2); BILIRUBIN,TOTAL 0.6 mg/dL (0.2-1.0); CALCIUM 8.5 mg/dL (8.5-10.3); CREATININE 2.3 mg/dL (0.6-1.2); TOTAL PROTEIN 7.1 g/dL (6.7-8.2)
[2018-12-12 11:36] LABS: BASOPHILS # (AUTO) 0.1 10^3/uL (0.0-0.1); EOSINOPHILS # (AUTO) 0.1 10^3/uL (0.0-0.7); EOSINOPHILS % (AUTO) 0.9 %; HGB - HEMOGLOBIN 9.4 g/dL (14.0-18.0); LYMPHOCYTES # (AUTO) 0.7 10^3/uL (1.5-3.5); LYMPHOCYTES % (AUTO) 8.8 %; MEAN CORPUSCULAR HEMOGLOBIN 29.7 pg (27.0-31.0); MEAN CORPUSCULAR HGB CONC 32.1 g/dL (32.0-36.0); MEAN CORPUSCULAR VOLUME 92.3 fL (80.0-94.0); MEAN PLATELET VOLUME 10.4 fL (7.4-11.4); MONOCYTES # (AUTO) 0.5 10^3/uL (0.0-1.0); MONOCYTES % (AUTO) 6.4 %; NEUTROPHILS # (AUTO) 6.7 10^3/uL (1.5-6.6); NEUTROPHILS % (AUTO) 82.9 %; PLT - PLATELET COUNT 230 10^3/uL (130-450); RED BLOOD COUNT 3.17 10^6/uL (4.70-6.10); RED CELL DISTRIBUTION WIDTH 15.1 % (12.0-15.0); WHITE BLOOD COUNT 8.1 x10^3/uL (4.8-10.8)
[2018-12-12 12:46] LABS: BILIRUBIN,URINE NEGATIVE (NEGATIVE); GLUCOSE, URINE (UA) NEGATIVE (NEGATIVE); KETONES,URINE (UA) NEGATIVE (NEGATIVE); LEUKOCYTE ESTERASE, URINE TRACE (NEGATIVE); NITRITE,URINE NEGATIVE (NEGATIVE); OCCULT BLOOD,URINE NEGATIVE (NEGATIVE); PROTEIN,URINE NEGATIVE (NEGATIVE); UROBILINOGEN,URINE 0.2 (NORMAL) E.U./dL (NORMAL)
[2018-12-12 12:49] LABS: CLARITY,URINE CLEAR (CLEAR)
[2018-12-12 12:53] LABS: BACTERIA,URINE None Seen /HPF (None Seen); RBC,URINE None Seen /HPF (0-5); SQUAMOUS EPITHELIAL CELL,UR RARE Squamous (<= Few)
[2018-12-12 13:35] VITALS: BP 134/75
== END 2018-12-12 13:34 | disposition home or self-care (01) ==
LOC: ED 10:02
DX: K64.8 Other hemorrhoids (principal); I48.91 Unspecified atrial fibrillation; Z79.01 Long term (current) use of anticoagulants; D64.9 Anemia, unspecified; E10.9 Type 1 diabetes mellitus without complications; Z79.4 Long term (current) use of insulin
CPT/HCPCS: 36415; 80053; 81001; 81003; 83690; 85025; 85610; 87086; 99283

== ENCOUNTER 2019-01-30 08:30 | Outpatient (CLI) | payer MEDICARE, OTHER ==
[2019-01-30 08:58] LABS: HGB - HEMOGLOBIN 11.1 g/dL (14.0-18.0); MEAN CORPUSCULAR HEMOGLOBIN 29.4 pg (27.0-31.0); MEAN CORPUSCULAR HGB CONC 32.4 g/dL (32.0-36.0); MEAN CORPUSCULAR VOLUME 90.6 fL (80.0-94.0); MEAN PLATELET VOLUME 10.6 fL (7.4-11.4); RED BLOOD COUNT 3.78 10^6/uL (4.70-6.10); RED CELL DISTRIBUTION WIDTH 17.3 % (12.0-15.0); WHITE BLOOD COUNT 7.2 x10^3/uL (4.8-10.8)
[2019-01-30 09:28] LABS: CALCIUM 9.3 mg/dL (8.5-10.3); CREATININE 2.7 mg/dL (0.6-1.2)
== END 2019-01-30 08:31 | disposition home or self-care (01) ==
LOC: LAB 08:30
PROVIDERS: ATTEND Internal Medicine Nephrology
DX: N05.9 Unspecified nephritic syndrome with unspecified morphologic changes (principal); D70.9 Neutropenia, unspecified; D63.1 Anemia in chronic kidney disease
CPT/HCPCS: 36415; 80048; 85027